=== PATIENT | female | born 1985 | race American Indian/Alaskan Native ===

== ENCOUNTER 2017-10-09 12:09 | Emergency (ER) | payer OTHER ==
[2017-10-09 13:06] VITALS: BP 112/55
[2017-10-09 14:17] LABS: Bilirubin,Urine NEG (Negative); Blood,Urine NEG (Negative); Color,Urine Yellow (Yellow); Mucus,Urine FEW /HPF; Nitrite,Urine NEG (Negative); Protein,Urine <15 mg/dL mg/dL (Negative); RBC,Urine < 1.0 /HPF (0.0-6.0); Urobilinogen,Urine < 2.0 mg/dL (<2.0); WBC,Urine < 1.0 /HPF (0.0-6.0)
[2017-10-09 14:18] LABS: HCG Qualitative,Urine Negative (Negative)
--- NOTE | 2017-10-09 20:30 | Emergency Department Report ---
Minor Respiratory - HPI Chief Complaint: Upper Respiratory Infection Stated Complaint: HEADACHES, EARACHE Time Seen by Provider: 10/09/17 19:50 Pain Location: Ear (left) Severity: mild Minor Respiratory: Yes Rhinorrhea, Yes Able to Tolerate Fluids, Yes Ear Pain ( left), Yes Cough, Yes Shortness of Breath, No Sore Throat, No Sick Contacts, No Hemoptysis, No Chest Pain, No Fever Other History: This is a 32 y.o. female presents with headache, left ear pain with ringing, sinus pressure, runny nose, and vomiting yesterday. 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 Her job sent her home because she couldn't hold her head up from sinus pressure and vomiting. She was coming here last night but just felt terrible. She took robitussin once last night with minimal improvement. She would like to have a refill on albuterol inhaler. She ran out a couple weeks ago but haven't had time to get a new prescription. ED Review of Systems ROS: Stated complaint: HEADACHES, EARACHE Other details as noted in HPI Constitutional: see HPI ENT: ear pain (left with ringing), congestion. denies: throat pain, dental pain , hearing loss, epistaxis Respiratory: cough. denies: orthopnea, shortness of breath, SOB with exertion, SOB at rest, stridor, wheezing Cardiovascular: denies: chest pain, palpitations, dyspnea on exertion, orthopnea , edema, syncope, paroxysmal nocturnal dyspnea Gastrointestinal: nausea (yesterday), vomiting (yesterday). denies: abdominal pain, diarrhea Neurological: headache. denies: weakness, paresthesias ED Past Medical Hx - Past Medical History Hx Hypertension: No Hx Heart Attack/AMI: No Hx Congestive Heart Failure: No Hx Diabetes: Yes (GDM only, on oral meds) Hx Deep Vein Thrombosis: No Hx Liver Disease: No Hx Renal Disease: No Hx Sickle Cell Disease: No Hx Seizures: No Hx Asthma: Yes (used inhaler three days ago) Hx COPD: No Hx HIV: No Additional medical history: uterine fibroids - Surgical History Additional Surgical History: - Social History Smoking Status: Never Smoker Substance Use Type: None - Medications Home Medications: Home Medications Medication Instructions Recorded Confirmed Last Taken Type Lidocain2.5%/Prilocai2.5% [Emla] 5 gm TP ONCE #1 tube 07/14/14 Unknown Rx oxyCODONE /ACETAMINOPHEN [Percocet 1 - 2 tab PO Q4HR PRN #30 tablet 07/14/14 Unknown Rx 5/325 mg] Ibuprofen [Motrin 600 MG tab] 800 mg PO Q8H PRN #30 tablet 09/29/15 Unknown Rx Promethazine [Phenergan TAB] 25 mg PO Q6HR PRN #20 tab 09/29/15 Unknown Rx traMADol [Ultram] 50 mg PO Q6HR PRN #20 tablet 09/29/15 Unknown Rx Albuterol Sulfate [Proair 90 mcg IH Q4-6H PRN 30 Days #1 10/09/17 Unknown Rx Respiclick] aer.pow.ba Fluticasone [Flonase] 1 spray NS QDAY #1 bottle 10/09/17 Unknown Rx Pseudoeph/Dm/Guaifen/Acetamin [Sm 1 each PO Q12H 5 Days #10 capsule 10/09/17 Unknown Rx Cough-Cold M-S Liq Capsule] Minor Respiratory Exam - Exam General: Vital signs noted. No distress. Alert and acting appropriately. HEENT: Yes Moist Mucous Membranes, Yes Rhinorrhea (clear, turbinates swollen and red), No Pharyngeal Erythema, No Pharyngeal Exudates, No Conjuctival Injection, No Frontal Tenderness, No Maxillary Tenderness Ear: Neither TM Bulge, Neither TM Erythema, Neither EAC Pain, Neither EAC Discharge Neck: Yes Supple, No Adenopathy Lungs: Yes Good Air Exchange, Yes Cough, No Wheezes, No Ronchi, No Stridor, No Labored Respirations, No Retractions, No Use of Accessory Muscles, No Other Abnormal Lung Sounds Heart: Yes Regular, No Murmur Abdomen: Yes Normal Bowel Sounds, No Tenderness, No Peritoneal Signs Skin: No Rash, No Edema Neurologic: Alert and oriented, no deficits. Musculoskeletal: Unremarkable. ED Course Vital Signs 10/09/17 13:03 Temperature 98.7 F Pulse Rate 97 H Respiratory 18 Rate Blood Pressure 112/55 O2 Sat by Pulse 97 Oximetry ED Medical Decision Making - Medical Decision Making This is a 32 y.o. Female presents with headache, left ear pain, sinus pressure, congestion, and rhinorrhea x 1 day. 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 Her job sent her home and advised to f/u with doctor. She took robitussin once yesterday. She is out of albuterol inhaler and requesting a refill. Normal UA, Urine HCG negative CC Physical Assessment Susceptible of nasopharyngitis, Supportive care, encouraged to increase fluid intake. Critical care attestation.: If time is entered above; I have spent that time in minutes in the direct care of this critically ill patient, excluding procedure time. ED Disposition Clinical Impression: Nasopharyngitis acute, Viral gastroenteritis Disposition: TO HOME OR SELFCARE Is pt being admited?: No Does the pt Need Aspirin: No Condition: Stable Instructions: Upper Respiratory Infection (ED), Gastroenteritis (ED), Acute Nausea and Vomiting (ED), Cold Symptoms (ED) Additional Instructions: Wash hands frequently. Increase fluid intake and rest. Take medication as prescribed. Follow up with Primary Care Provider if symptoms persist. Prescriptions: Albuterol Sulfate [Proair Respiclick] 90 mcg IH Q4-6H PRN 30 Days #1 aer.pow.ba PRN Reason: Shortness Of Breath Fluticasone [Flonase] 1 spray NS QDAY #1 bottle Pseudoeph/Dm/Guaifen/Acetamin [Sm Cough-Cold M-S Liq Capsule] 1 each PO Q12H 5 Days #10 capsule Referrals: [facility] [Outside] - 3-5 Days [facility] [Outside] - 3-5 Days [facility] [Outside] - 3-5 Days Forms: Work/School Release Form(ED) Time of Disposition: 20:46 Print Language: SWEDISH
== END 2017-10-09 21:25 | disposition home or self-care (01) ==
LOC: ED 12:09
DX: J00 Acute nasopharyngitis [common cold] (principal); A08.4 Viral intestinal infection, unspecified; J45.909 Unspecified asthma, uncomplicated; H92.02 Otalgia, left ear; D25.9 Leiomyoma of uterus, unspecified; Z91.018 Allergy to other foods
CPT/HCPCS: 81001; 81025; 99283

== ENCOUNTER 2017-10-22 00:47 | Emergency (ER) | payer OTHER ==
[2017-10-22] MEDS ORDERED: MOTRIN PO ONE (05:40)
[2017-10-22] MEDS ORDERED: DUONEB *Not for PRN Use IH ONE (05:40)
[2017-10-22] MEDS ORDERED: BSS 1 DROPS, TETRACAINE 0.5% 1 DROPS, FUL-GLO 0.6 MG OD ONE (05:41)
[2017-10-22] MEDS ORDERED: BSS ONE (06:01)
[2017-10-22] MEDS ORDERED: FUL-GLO OP ONE (06:01)
[2017-10-22] MEDS ORDERED: TETRACAINE 0.5% ONE (06:01)
--- NOTE | 2017-10-22 06:37 | Emergency Department Report ---
ED Eye Problem HPI - General Chief complaint: Eye Problems Stated complaint: H/A; EYE IRRITATION Time Seen by Provider: 10/22/17 05:39 Source: patient Mode of arrival: Ambulatory Limitations: No Limitations - History of Present Illness Initial comments: 32-year-old female past medical history obesity, asthma, diabetes, uterine fibroids presents with complaint of 6 days of right eye irritation. Patient denies any direct injury or trauma to eye. Has had watery discharge for several days. States right eye has become red. No nausea or vomiting no fever no chills. Patient does state she has been wheezing slightly at home secondary to her asthma. Denies any productive cough. Patient is awake alert and oriented 3 fully lucid speaking in full sentences. States she has slight foreign body sensation on the right eyelid. MD chief complaint: eye pain Onset/Timin -: days(s) Location: right eye Place: home Eye Symptoms: redness Associated Symptoms: none - Related Data Patient Tetanus UTD: Yes Previous Rx's Medication Instructions Recorded Last Taken Type Lidocain2.5%/Prilocai2.5% [Emla] 5 gm TP ONCE #1 tube 07/14/14 Unknown Rx oxyCODONE /ACETAMINOPHEN [Percocet 1 - 2 tab PO Q4HR PRN #30 tablet 07/14/14 Unknown Rx 5/325 mg] Ibuprofen [Motrin 600 MG tab] 800 mg PO Q8H PRN #30 tablet 09/29/15 Unknown Rx Promethazine [Phenergan TAB] 25 mg PO Q6HR PRN #20 tab 09/29/15 Unknown Rx traMADol [Ultram] 50 mg PO Q6HR PRN #20 tablet 09/29/15 Unknown Rx Albuterol Sulfate [Proair 90 mcg IH Q4-6H PRN 30 Days #1 10/09/17 Unknown Rx Respiclick] aer.pow.ba Fluticasone [Flonase] 1 spray NS QDAY #1 bottle 10/09/17 Unknown Rx Pseudoeph/Dm/Guaifen/Acetamin [Sm 1 each PO Q12H 5 Days #10 capsule 10/09/17 Unknown Rx Cough-Cold M-S Liq Capsule] Albuterol Sulfate [Ventolin Hfa] 1 gm IH Q4H PRN #1 hfa.aer.ad 10/22/17 Unknown Rx Ibuprofen [Motrin] 800 mg PO Q8HR PRN #30 tablet 10/22/17 Unknown Rx Phenylephrine/Dm/Acetaminop/GG 10 ml PO Q6H PRN #1 liquid 10/22/17 Unknown Rx [Mucinex Lkux-Xnu-Yirffxcqjx Lq] Tobramycin 0.3% [Tobrex] 1 drop OD Q6H #1 bottle 10/22/17 Unknown Rx predniSONE [Deltasone] 20 mg PO QDAY #5 tab 10/22/17 Unknown Rx Allergies Allergy/AdvReac Type Severity Reaction Status Date / Time tramadol Allergy Itching Verified 10/22/17 01:12 fat back Allergy Severe Swelling Uncoded 10/23/15 20:56 watermelon Allergy Swelling Uncoded 10/23/15 20:56 ED Review of Systems ROS: Stated complaint: H/A; EYE IRRITATION Other details as noted in HPI Constitutional: denies: chills, fever Eyes: eye pain. denies: eye discharge, vision change ENT: denies: ear pain, throat pain Respiratory: denies: cough, shortness of breath, wheezing Cardiovascular: denies: chest pain, palpitations Endocrine: no symptoms reported Gastrointestinal: denies: abdominal pain, nausea, diarrhea Genitourinary: denies: urgency, dysuria, discharge Musculoskeletal: denies: back pain, joint swelling, arthralgia Skin: denies: rash, lesions Neurological: denies: headache, weakness, paresthesias Psychiatric: denies: anxiety, depression Hematological/Lymphatic: denies: easy bleeding, easy bruising ED Past Medical Hx - Past Medical History Hx Hypertension: No Hx Heart Attack/AMI: No Hx Congestive Heart Failure: No Hx Diabetes: Yes (GDM only, on oral meds) Hx Deep Vein Thrombosis: No Hx Liver Disease: No Hx Renal Disease: No Hx Sickle Cell Disease: No Hx Seizures: No Hx Asthma: Yes (used inhaler three days ago) Hx COPD: No Hx HIV: No Additional medical history: uterine fibroids - Surgical History Additional Surgical History: - Social History Smoking Status: Never Smoker Substance Use Type: None - Medications Home Medications: Home Medications Medication Instructions Recorded Confirmed Last Taken Type Lidocain2.5%/Prilocai2.5% [Emla] 5 gm TP ONCE #1 tube 07/14/14 Unknown Rx oxyCODONE /ACETAMINOPHEN [Percocet 1 - 2 tab PO Q4HR PRN #30 tablet 07/14/14 Unknown Rx 5/325 mg] Ibuprofen [Motrin 600 MG tab] 800 mg PO Q8H PRN #30 tablet 09/29/15 Unknown Rx Promethazine [Phenergan TAB] 25 mg PO Q6HR PRN #20 tab 09/29/15 Unknown Rx traMADol [Ultram] 50 mg PO Q6HR PRN #20 tablet 09/29/15 Unknown Rx Albuterol Sulfate [Proair 90 mcg IH Q4-6H PRN 30 Days #1 10/09/17 Unknown Rx Respiclick] aer.pow.ba Fluticasone [Flonase] 1 spray NS QDAY #1 bottle 10/09/17 Unknown Rx Pseudoeph/Dm/Guaifen/Acetamin [Sm 1 each PO Q12H 5 Days #10 capsule 10/09/17 Unknown Rx Cough-Cold M-S Liq Capsule] Albuterol Sulfate [Ventolin Hfa] 1 gm IH Q4H PRN #1 hfa.aer.ad 10/22/17 Unknown Rx Ibuprofen [Motrin] 800 mg PO Q8HR PRN #30 tablet 10/22/17 Unknown Rx Phenylephrine/Dm/Acetaminop/GG 10 ml PO Q6H PRN #1 liquid 10/22/17 Unknown Rx [Mucinex Fsdn-Ixv-Uorsizxwsn Lq] Tobramycin 0.3% [Tobrex] 1 drop OD Q6H #1 bottle 10/22/17 Unknown Rx predniSONE [Deltasone] 20 mg PO QDAY #5 tab 10/22/17 Unknown Rx ED Physical Exam - General Limitations: No Limitations General appearance: alert, in no apparent distress - Head Head exam: Present: atraumatic, normocephalic - Eye Eye exam: Present: normal appearance, PERRL, EOMI - Expanded Eye Exam Expanded Pupils: Regular, Round: Bilateral, Reactive: Bilateral Sclera/Conjunctival: Injection: Right (right conjunctival injection. Fluorescein uptake on the right eye suggestive of corneal abrasion 6 o'clock position to the limbus.) Anterior chamber: Normal Inspection: Bilateral Visual acuity (R) = 20/: 20 Visual acuity (L) = 20/: 20 IOP (R) in mmH IOP measured with: Tonopen - ENT ENT exam: Present: mucous membranes moist - Neck Neck exam: Present: normal inspection - Respiratory Respiratory exam: Present: normal lung sounds bilaterally. Absent: respiratory distress - Cardiovascular Cardiovascular Exam: Present: regular rate, normal rhythm. Absent: systolic murmur, diastolic murmur, rubs, gallop - GI/Abdominal GI/Abdominal exam: Present: soft, normal bowel sounds - Extremities Exam Extremities exam: Present: normal inspection - Back Exam Back exam: Present: normal inspection - Neurological Exam Neurological exam: Present: alert, oriented X3 - Psychiatric Psychiatric exam: Present: normal affect, normal mood - Skin Skin exam: Present: warm, dry, intact, normal color. Absent: rash ED Course Vital Signs 10/22/17 01:03 Temperature 98.3 F Pulse Rate 92 H Respiratory 20 Rate Blood Pressure 140/80 [Left] ED Medical Decision Making - Medical Decision Making A/P: Right eye corneal abrasion, asthma exacerbation 1-vital signs stable 2-tobramycin drops to right eye, Motrin when necessary. Patient's tetanus vaccine status is up-to-date. 3-follow-up with ophthalmology 4- patient's vision is currently 20/20 bilaterally no foreign body on fluorescein stain Critical care attestation.: If time is entered above; I have spent that time in minutes in the direct care of this critically ill patient, excluding procedure time. ED Disposition Clinical Impression: Corneal abrasion, right Qualifiers: Encounter type: initial encounter Qualified Code(s): S05.01XA - Injury of conjunctiva and corneal abrasion without foreign body, right eye, initial encounter Asthma Qualifiers: Asthma severity: mild Asthma persistence: intermittent Asthma complication type : unspecified Qualified Code(s): J45.20 - Mild intermittent asthma, uncomplicated Disposition: - TO HOME OR SELFCARE Is pt being admited?: No Does the pt Need Aspirin: No Condition: Stable Instructions: Asthma (ED), Corneal Abrasion (ED) Prescriptions: Albuterol Sulfate [Ventolin Hfa] 1 gm IH Q4H PRN #1 hfa.aer.ad PRN Reason: Wheezing Ibuprofen [Motrin] 800 mg PO Q8HR PRN #30 tablet PRN Reason: Pain Phenylephrine/Dm/Acetaminop/GG [Mucinex Hgqs-Wlk-Xksiniyfeu Lq] 10 ml PO Q6H PRN #1 liquid PRN Reason: Cough predniSONE [Deltasone] 20 mg PO QDAY #5 tab Tobramycin 0.3% [Tobrex] 1 drop OD Q6H #1 bottle Referrals: ROBERT LOPEZ MD [Staff Physician] - 3-5 Days HARI ANDERSON MD [Staff Physician] - 3-5 Days Forms: Work/School Release Form(ED) Time of Disposition: 06:41
[2017-10-22 06:56] VITALS: BP 135/76
== END 2017-10-22 07:00 | disposition home or self-care (01) ==
LOC: ED 00:47
DX: S05.01XA Injury of conjunctiva and corneal abrasion without foreign body, right eye, initial encounter (principal); J45.20 Mild intermittent asthma, uncomplicated; E66.9 Obesity, unspecified; E11.9 Type 2 diabetes mellitus without complications; Z88.6 Allergy status to analgesic agent; Z91.018 Allergy to other foods; X58.XXXA Exposure to other specified factors, initial encounter; Y93.89 Activity, other specified; Y92.89 Other specified places as the place of occurrence of the external cause; Y99.8 Other external cause status
CPT/HCPCS: 36415; 84703; 99283

== ENCOUNTER 2019-04-02 04:50 | Emergency (ER) | payer OTHER ==
[2019-04-02] MEDS ORDERED: TYLENOL PO ONE (05:06)
[2019-04-02] MEDS ORDERED: DELTASONE PO ONE (05:06)
[2019-04-02] MEDS ORDERED: BENADRYL PO ONE (05:06)
[2019-04-02] MEDS ORDERED: REGLAN PO ONE (05:06)
--- NOTE | 2019-04-02 05:11 | Emergency Department Report ---
ED Headache HPI - General Chief Complaint: Headache Stated Complaint: NASAL PAIN W/HEADACHE Time Seen by Provider: 04/02/19 05:06 - History of Present Illness Initial Comments: pt is a 34 y/o aaf who present for sinus headache and bilat maxillary sinus pain and pressure x 3 days pt state hx of same for over 10 yrs, there is no sob no dizziness no lightheadedness no n/v no fever or chills, Timing/Duration: 1 week Quality: moderate, sharp Head Injury Location: frontal, parietal Recent Head Trauma: occasional headaches Modifying Factors: improves with: rest. worse with: cold therapy, medication, movement Associated Symptoms: facial pain, nasal congestion, nasal drainage, stiff neck. denies: nausea/vomiting, numbness in legs/feet, seizures, sinus infection Allergies/Adverse Reactions: Allergies tramadol Allergy (Verified 10/22/17 01:12) Itching fat back Allergy (Severe, Uncoded 10/23/15 20:56) Swelling watermelon Allergy (Uncoded 10/23/15 20:56) Swelling Home Medications: Ambulatory Orders oxyCODONE /ACETAMINOPHEN [Percocet 5/325 mg] 1 - 2 tab PO Q4HR PRN #30 tablet 07/14/14 Ibuprofen [Motrin 600 MG tab] 800 mg PO Q8H PRN #30 tablet 09/29/15 Promethazine [Phenergan TAB] 25 mg PO Q6HR PRN #20 tab 09/29/15 traMADol [Ultram] 50 mg PO Q6HR PRN #20 tablet 09/29/15 Albuterol Sulfate [Proair Respiclick] 90 mcg IH Q4-6H PRN 30 Days #1 aer.pow.ba 10/09/17 Fluticasone [Flonase] 1 spray NS QDAY #1 bottle 10/09/17 Pseudoeph/Dm/Guaifen/Acetamin [Sm Cough-Cold M-S Liq Capsule] 1 each PO Q12H 5 Days #10 capsule 10/09/17 Albuterol Sulfate [Ventolin Hfa] 1 gm IH Q4H PRN #1 hfa.aer.ad 10/22/17 Ibuprofen [Motrin] 800 mg PO Q8HR PRN #30 tablet 10/22/17 Phenylephrine/Dm/Acetaminop/GG [Mucinex Ntzv-Vkn-Rgxpwrrweo Lq] 10 ml PO Q6H PRN #1 liquid 10/22/17 Tobramycin 0.3% [Tobrex] 1 drop OD Q6H #1 bottle 10/22/17 predniSONE [Deltasone] 20 mg PO QDAY #5 tab 10/22/17 Acetaminophen/Codeine [Tylenol /Codeine # 3 tab] 1 tab PO Q6H PRN #12 tab 08/19/18 Clindamycin [Clindamycin CAP] 300 mg PO Q8H #21 cap 08/19/18 Naproxen [Naprosyn] 500 mg PO TID #12 tablet 08/19/18 Nystas/Diphen/Xyl Visc/Mylanta [Magic Mouthwash] 15 ml MM Q4H PRN #100 ml 08/19/18 Acetaminophen [Acetaminophen TAB] 1,000 mg PO Q6HR #30 tablet 04/02/19 Acetaminophen [Acetaminophen TAB] 1,000 mg PO Q6HR PRN #30 tablet 04/02/19 Lidocain2.5%/Prilocai2.5% [Emla] 5 gm TP ONCE #1 tube 04/02/19 Metoclopramide [Reglan] 10 mg PO ACHS #6 tablet 04/02/19 diphenhydrAMINE [Benadryl CAP] 25 mg PO Q6HR PRN #30 capsule 04/02/19 predniSONE [Deltasone] 20 mg PO 18 1 Days #10 tablet 04/02/19 ED Review of Systems ROS: Stated complaint: NASAL PAIN W/HEADACHE Other details as noted in HPI Constitutional: denies: chills, fever Eyes: denies: eye pain, eye discharge, vision change ENT: denies: ear pain, throat pain Respiratory: denies: cough, shortness of breath, wheezing Cardiovascular: denies: chest pain, palpitations Endocrine: no symptoms reported Gastrointestinal: denies: abdominal pain, nausea, diarrhea Genitourinary: denies: urgency, dysuria, discharge Musculoskeletal: denies: back pain, joint swelling, arthralgia Skin: denies: rash, lesions Neurological: denies: headache, weakness, paresthesias Psychiatric: denies: anxiety, depression Hematological/Lymphatic: denies: easy bleeding, easy bruising ED Past Medical Hx - Past Medical History Previous Medical History?: Yes Hx Hypertension: No Hx Heart Attack/AMI: No Hx Congestive Heart Failure: No Hx Diabetes: Yes (GDM only, on oral meds) Hx Deep Vein Thrombosis: No Hx Liver Disease: No Hx Renal Disease: No Hx Sickle Cell Disease: No Hx Seizures: No Hx Asthma: Yes (used inhaler three days ago) Hx COPD: No Hx HIV: No Additional medical history: uterine fibroids - Surgical History Past Surgical History?: Yes Additional Surgical History: x 2 - Social History Smoking Status: Current Every Day Smoker Substance Use Type: None - Medications Home Medications: Home Medications Medication Instructions Recorded Confirmed Last Taken Type oxyCODONE /ACETAMINOPHEN [Percocet 1 - 2 tab PO Q4HR PRN #30 tablet 07/14/14 Unknown Rx 5/325 mg] Ibuprofen [Motrin 600 MG tab] 800 mg PO Q8H PRN #30 tablet 09/29/15 Unknown Rx Promethazine [Phenergan TAB] 25 mg PO Q6HR PRN #20 tab 09/29/15 Unknown Rx traMADol [Ultram] 50 mg PO Q6HR PRN #20 tablet 09/29/15 Unknown Rx Albuterol Sulfate [Proair 90 mcg IH Q4-6H PRN 30 Days #1 10/09/17 Unknown Rx Respiclick] aer.pow.ba Fluticasone [Flonase] 1 spray NS QDAY #1 bottle 10/09/17 Unknown Rx Pseudoeph/Dm/Guaifen/Acetamin [Sm 1 each PO Q12H 5 Days #10 capsule 10/09/17 Unknown Rx Cough-Cold M-S Liq Capsule] Albuterol Sulfate [Ventolin Hfa] 1 gm IH Q4H PRN #1 hfa.aer.ad 10/22/17 Unknown Rx Ibuprofen [Motrin] 800 mg PO Q8HR PRN #30 tablet 10/22/17 Unknown Rx Phenylephrine/Dm/Acetaminop/GG 10 ml PO Q6H PRN #1 liquid 10/22/17 Unknown Rx [Mucinex Aqxc-Rsb-Ccflvxojyn Lq] Tobramycin 0.3% [Tobrex] 1 drop OD Q6H #1 bottle 10/22/17 Unknown Rx predniSONE [Deltasone] 20 mg PO QDAY #5 tab 10/22/17 Unknown Rx Acetaminophen/Codeine [Tylenol 1 tab PO Q6H PRN #12 tab 08/19/18 Unknown Rx /Codeine # 3 tab] Clindamycin [Clindamycin CAP] 300 mg PO Q8H #21 cap 08/19/18 Unknown Rx Naproxen [Naprosyn] 500 mg PO TID #12 tablet 08/19/18 Unknown Rx Nystas/Diphen/Xyl Visc/Mylanta 15 ml MM Q4H PRN #100 ml 08/19/18 Unknown Rx [Magic Mouthwash] Acetaminophen [Acetaminophen TAB] 1,000 mg PO Q6HR #30 tablet 04/02/19 Unknown Rx Acetaminophen [Acetaminophen TAB] 1,000 mg PO Q6HR PRN #30 tablet 04/02/19 Unknown Rx Lidocain2.5%/Prilocai2.5% [Emla] 5 gm TP ONCE #1 tube 04/02/19 Unknown Rx Metoclopramide [Reglan] 10 mg PO ACHS #6 tablet 04/02/19 Unknown Rx diphenhydrAMINE [Benadryl CAP] 25 mg PO Q6HR PRN #30 capsule 04/02/19 Unknown Rx predniSONE [Deltasone] 20 mg PO 18 1 Days #10 tablet 04/02/19 Unknown Rx ED Physical Exam - General Limitations: No Limitations General appearance: alert, in no apparent distress - Head Head exam: Present: atraumatic, normocephalic - Eye Eye exam: Present: normal appearance, PERRL, EOMI, scleral icterus Pupils: Present: normal accommodation - ENT ENT exam: Present: normal exam, normal orophraynx, mucous membranes dry, TM's normal bilaterally, normal external ear exam - Neck Neck exam: Present: normal inspection, full ROM, lymphadenopathy. Absent: tenderness, meningismus, thyromegaly - Respiratory Respiratory exam: Present: wheezes, decreased breath sounds. Absent: respiratory distress, rales, stridor - Cardiovascular Cardiovascular Exam: Present: regular rate, normal rhythm, normal heart sounds. Absent: systolic murmur, diastolic murmur, rubs, gallop - GI/Abdominal GI/Abdominal exam: Present: soft, normal bowel sounds. Absent: distended, tenderness, mass, bruit, hernia - Rectal Rectal exam: Present: deferred - Extremities Exam Extremities exam: Present: normal inspection - Back Exam Back exam: Present: normal inspection, full ROM. Absent: tenderness, CVA tenderness (R), CVA tenderness (L), muscle spasm, paraspinal tenderness, rash noted - Neurological Exam Neurological exam: Present: alert, oriented X3, CN II-XII intact, normal gait, reflexes normal, other - Psychiatric Psychiatric exam: Present: normal affect, normal mood - Skin Skin exam: Present: warm, dry, intact, normal color. Absent: rash ED Medical Decision Making - EKG Data EKG shows normal: sinus rhythm, axis, intervals, QRS complexes, ST-T waves Rate: normal - Radiology Data Radiology results: report reviewed CT Abd and Pelvis. pt avaliable did a he has to go to unit., Dustin machado , - Medical Decision Making This is a Sinus Headache, plan, tylenol, pt aststes pain is improved plan: dc to home an dstart a nother pt denies cp or sob no dizziness no light headed ness, plan dc to home in stable condition at this time. vital signs: bp: 136/74, Hr: 74, resp: 16, temp: 98.6, pt will follow up with pcp in 2-3 days return to ed if symptoms worsent, p Critical care attestation.: If time is entered above; I have spent that time in minutes in the direct care of this critically ill patient, excluding procedure time. ED Disposition Clinical Impression: Sinus headache Headache Qualifiers: Headache type: unspecified Headache chronicity pattern: chronic headache Intractability: not intractable Qualified Code(s): R51 - Headache Disposition: DC-01 TO HOME OR SELFCARE Is pt being admited?: No Does the pt Need Aspirin: No Condition: Good Instructions: Acute Headache (ED), Sinusitis (ED) Prescriptions: Acetaminophen [Acetaminophen TAB] 1,000 mg PO Q6HR PRN #30 tablet PRN Reason: Pain , Severe (7-10) Acetaminophen [Acetaminophen TAB] 1,000 mg PO Q6HR #30 tablet diphenhydrAMINE [Benadryl CAP] 25 mg PO Q6HR PRN #30 capsule PRN Reason: Headache predniSONE [Deltasone] 20 mg PO 18 1 Days #10 tablet Lidocain2.5%/Prilocai2.5% [Emla] 5 gm TP ONCE #1 tube Metoclopramide [Reglan] 10 mg PO ACHS #6 tablet Referrals: SIMON GONZALES MD [Staff Physician] - 3-5 Days Forms: Work/School Release Form(ED) Time of Disposition: 05:42
== END 2019-04-02 06:58 | disposition home or self-care (01) ==
LOC: ED 04:50
DX: R51 Headache (principal); E11.9 Type 2 diabetes mellitus without complications; J45.909 Unspecified asthma, uncomplicated; D25.9 Leiomyoma of uterus, unspecified; F17.200 Nicotine dependence, unspecified, uncomplicated; Z79.1 Long term (current) use of non-steroidal anti-inflammatories (NSAID); Z79.899 Other long term (current) drug therapy; Z88.6 Allergy status to analgesic agent; Z91.018 Allergy to other foods
CPT/HCPCS: 99282; J7512

== ENCOUNTER 2019-07-14 00:20 | Emergency (ER) | payer OTHER ==
[2019-07-14 01:04] LABS: Bilirubin,Urine NEG (Negative); Blood,Urine NEG (Negative); Color,Urine Yellow (Yellow); Mucus,Urine FEW /HPF; Protein,Urine <15 mg/dL mg/dL (Negative); WBC,Urine < 1.0 /HPF (0.0-6.0)
[2019-07-14 01:09] LABS: Basophils # (Auto) 0.1 K/mm3 (0.0-0.1); Basophils % (Auto) 0.6 % (0.0-1.8); Eosinophils # (Auto) 0.2 K/mm3 (0.0-0.4); Eosinophils % (Auto) 2.7 % (0.0-4.3); Hematocrit 38.8 % (30.3-42.9); Hemoglobin 12.9 gm/dl (10.1-14.3); Lymphocytes # (Auto) 3.2 K/mm3 (1.2-5.4); Lymphocytes % (Auto) 34.2 % (13.4-35.0); Mean Corpuscular HGB Conc 33 % (30-34); Mean Corpuscular Volume 90 fl (79-97); Monocytes # (Auto) 0.5 K/mm3 (0.0-0.8); Monocytes % (Auto) 5.2 % (0.0-7.3); Platelet Count 246 K/mm3 (140-440); Red Blood Count 4.32 M/mm3 (3.65-5.03)
[2019-07-14 01:32] LABS: Alanine Aminotransferase 29 units/L (7-56); Albumin 4.2 g/dL (3.9-5); BUN/Creatinine Ratio 20; Blood Urea Nitrogen 14 mg/dL (7-17); Calcium 8.8 mg/dL (8.4-10.2); Hemolysis Index 16
--- NOTE | 2019-07-14 01:42 | Emergency Department Report ---
ED Abdominal Pain HPI - General Chief Complaint: Abdominal Pain Stated Complaint: ABD PAIN LT SIDE Time Seen by Provider: 07/14/19 01:17 Source: patient Mode of arrival: Ambulatory Limitations: No Limitations - History of Present Illness Initial Comments: This is a 34-year-old -[place] female who presents to the emergency room with left-sided abdominal pain for 2-3 days. Past medical history of type 2 diabetes and asthma. Patient reports pain is worse after eating. She also reports urinary frequency. She denies nausea, vomiting, diarrhea, vaginal discharge, dysuria, hematuria, and chest pain. MD Complaint: abdominal pain Onset/Timin -: days(s) Location: LUQ, LLQ Radiation: none Migration to: no migration Severity scale (0 -10): 8 Quality: cramping Consistency: intermittent Improves With: nothing Worsens With: eating Associated Symptoms: denies other symptoms Treatments Prior to Arrival: NSAIDs - Related Data Previous Rx's Medication Instructions Recorded Last Taken Type oxyCODONE /ACETAMINOPHEN [Percocet 1 - 2 tab PO Q4HR PRN #30 tablet 07/14/14 Un known Rx 5/325 mg] Ibuprofen [Motrin 600 MG tab] 800 mg PO Q8H PRN #30 tablet 09/29/15 Unknown Rx Promethazine [Phenergan TAB] 25 mg PO Q6HR PRN #20 tab 09/29/15 Unknown Rx traMADol [Ultram] 50 mg PO Q6HR PRN #20 tablet 09/29/15 Unknown Rx Albuterol Sulfate [Proair 90 mcg IH Q4-6H PRN 30 Days #1 10/09/17 Unknown Rx Respiclick] aer.pow.ba Fluticasone [Flonase] 1 spray NS QDAY #1 bottle 10/09/17 Unknown Rx Pseudoeph/Dm/Guaifen/Acetamin [Sm 1 each PO Q12H 5 Days #10 capsule 10/09/17 Unknown Rx Cough-Cold M-S Liq Capsule] Albuterol Sulfate [Ventolin Hfa] 1 gm IH Q4H PRN #1 hfa.aer.ad 10/22/17 Unknown Rx Ibuprofen [Motrin] 800 mg PO Q8HR PRN #30 tablet 10/22/17 Unknown Rx Phenylephrine/Dm/Acetaminop/GG 10 ml PO Q6H PRN #1 liquid 10/22/17 Unknown Rx [Mucinex Adhx-Gjv-Bssbcgcvgs Lq] Tobramycin 0.3% [Tobrex] 1 drop OD Q6H #1 bottle 10/22/17 Unknown Rx predniSONE [Deltasone] 20 mg PO QDAY #5 tab 10/22/17 Unknown Rx Acetaminophen/Codeine [Tylenol 1 tab PO Q6H PRN #12 tab 08/19/18 Unknown Rx /Codeine # 3 tab] Clindamycin [Clindamycin CAP] 300 mg PO Q8H #21 cap 08/19/18 Unknown Rx Naproxen [Naprosyn] 500 mg PO TID #12 tablet 08/19/18 Unknown Rx Nystas/Diphen/Xyl Visc/Mylanta 15 ml MM Q4H PRN #100 ml 08/19/18 Unknown Rx [Magic Mouthwash] Acetaminophen [Acetaminophen TAB] 1,000 mg PO Q6HR #30 tablet 04/02/19 Unknown Rx Acetaminophen [Acetaminophen TAB] 1,000 mg PO Q6HR PRN #30 tablet 04/02/19 Unknown Rx Lidocain2.5%/Prilocai2.5% [Emla] 5 gm TP ONCE #1 tube 04/02/19 Unknown Rx Metoclopramide [Reglan] 10 mg PO ACHS #6 tablet 04/02/19 Unknown Rx diphenhydrAMINE [Benadryl CAP] 25 mg PO Q6HR PRN #30 capsule 04/02/19 Unknown Rx predniSONE [Deltasone] 20 mg PO 18 1 Days #10 tablet 04/02/19 Unknown Rx Famotidine [Pepcid] 40 mg PO QHS #30 tablet 07/14/19 Unknown Rx Allergies Allergy/AdvReac Type Severity Reaction Status Date / Time tramadol Allergy Itching Verified 10/22/17 01:12 fat back Allergy Severe Swelling Uncoded 10/23/15 20:56 watermelon Allergy Swelling Uncoded 10/23/15 20:56 ED Review of Systems ROS: Stated complaint: ABD PAIN LT SIDE Other details as noted in HPI Constitutional: denies: chills, fever Respiratory: denies: cough, shortness of breath, wheezing Cardiovascular: denies: chest pain, palpitations Gastrointestinal: abdominal pain (left sided). denies: nausea, diarrhea Genitourinary: frequency. denies: urgency, dysuria, discharge Musculoskeletal: denies: back pain, joint swelling, arthralgia Skin: denies: rash, lesions Neurological: denies: headache, weakness, paresthesias Psychiatric: denies: anxiety, depression ED Past Medical Hx - Past Medical History Previous Medical History?: Yes Hx Hypertension: No Hx Heart Attack/AMI: No Hx Congestive Heart Failure: No Hx Diabetes: Yes (GDM only, on oral meds) Hx Deep Vein Thrombosis: No Hx Liver Disease: No Hx Renal Disease: No Hx Sickle Cell Disease: No Hx Seizures: No Hx Asthma: Yes (used inhaler three days ago) Hx COPD: No Hx HIV: No Additional medical history: uterine fibroids - Surgical History Past Surgical History?: Yes Additional Surgical History: x 2 - Social History Smoking Status: Current Every Day Smoker Substance Use Type: None - Medications Home Medications: Home Medications Medication Instructions Recorded Confirmed Last Taken Type oxyCODONE /ACETAMINOPHEN [Percocet 1 - 2 tab PO Q4HR PRN #30 tablet 07/14/14 Unknown Rx 5/325 mg] Ibuprofen [Motrin 600 MG tab] 800 mg PO Q8H PRN #30 tablet 09/29/15 Unknown Rx Promethazine [Phenergan TAB] 25 mg PO Q6HR PRN #20 tab 09/29/15 Unknown Rx traMADol [Ultram] 50 mg PO Q6HR PRN #20 tablet 09/29/15 Unknown Rx Albuterol Sulfate [Proair 90 mcg IH Q4-6H PRN 30 Days #1 10/09/17 Unknown Rx Respiclick] aer.pow.ba Fluticasone [Flonase] 1 spray NS QDAY #1 bottle 10/09/17 Unknown Rx Pseudoeph/Dm/Guaifen/Acetamin [Sm 1 each PO Q12H 5 Days #10 capsule 10/09/17 Unknown Rx Cough-Cold M-S Liq Capsule] Albuterol Sulfate [Ventolin Hfa] 1 gm IH Q4H PRN #1 hfa.aer.ad 10/22/17 Unknown Rx Ibuprofen [Motrin] 800 mg PO Q8HR PRN #30 tablet 10/22/17 Unknown Rx Phenylephrine/Dm/Acetaminop/GG 10 ml PO Q6H PRN #1 liquid 10/22/17 Unknown Rx [Mucinex Hydk-Zaz-Ecwsrvkrju Lq] Tobramycin 0.3% [Tobrex] 1 drop OD Q6H #1 bottle 10/22/17 Unknown Rx predniSONE [Deltasone] 20 mg PO QDAY #5 tab 10/22/17 Unknown Rx Acetaminophen/Codeine [Tylenol 1 tab PO Q6H PRN #12 tab 08/19/18 Unknown Rx /Codeine # 3 tab] Clindamycin [Clindamycin CAP] 300 mg PO Q8H #21 cap 08/19/18 Unknown Rx Naproxen [Naprosyn] 500 mg PO TID #12 tablet 08/19/18 Unknown Rx Nystas/Diphen/Xyl Visc/Mylanta 15 ml MM Q4H PRN #100 ml 08/19/18 Unknown Rx [Magic Mouthwash] Acetaminophen [Acetaminophen TAB] 1,000 mg PO Q6HR #30 tablet 04/02/19 Unknown Rx Acetaminophen [Acetaminophen TAB] 1,000 mg PO Q6HR PRN #30 tablet 04/02/19 Unknown Rx Lidocain2.5%/Prilocai2.5% [Emla] 5 gm TP ONCE #1 tube 04/02/19 Unknown Rx Metoclopramide [Reglan] 10 mg PO ACHS #6 tablet 04/02/19 Unknown Rx diphenhydrAMINE [Benadryl CAP] 25 mg PO Q6HR PRN #30 capsule 04/02/19 Unknown Rx predniSONE [Deltasone] 20 mg PO 18 1 Days #10 tablet 04/02/19 Unknown Rx Famotidine [Pepcid] 40 mg PO QHS #30 tablet 07/14/19 Unknown Rx ED Physical Exam - General Limitations: No Limitations General appearance: alert, in no apparent distress, obese (morbidly) - Respiratory Respiratory exam: Present: normal lung sounds bilaterally. Absent: respiratory distress - Cardiovascular Cardiovascular Exam: Present: regular rate, normal rhythm. Absent: systolic murmur, diastolic murmur, rubs, gallop - GI/Abdominal GI/Abdominal exam: Present: soft, tenderness (left upper quadrant), normal bowel sounds. Absent: distended, guarding, rebound, rigid, organomegaly, mass, pulsatile mass - Back Exam Back exam: Absent: CVA tenderness (R), CVA tenderness (L), rash noted - Neurological Exam Neurological exam: Present: alert, oriented X3, normal gait - Psychiatric Psychiatric exam: Present: normal affect, normal mood - Skin Skin exam: Present: warm, dry, intact, normal color. Absent: rash ED Course Vital Signs 07/14/19 00:24 Temperature 98.4 F Pulse Rate 80 Respiratory 18 Rate Blood Pressure 147/40 O2 Sat by Pulse 99 Oximetry ED Medical Decision Making - Lab Data Result diagrams: 07/14/19 00:53 07/14/19 00:53 Lab Results 07/14/19 07/14/19 07/14/19 Range/Units 00:53 00:53 00:53 WBC 9.3 (4.5-11.0) K/mm3 RBC 4.32 (3.65-5.03) M/mm3 Hgb 12.9 (10.1-14.3) gm/dl Hct 38.8 (30.3-42.9) % MCV 90 (79-97) fl MCH 30 (28-32) pg MCHC 33 (30-34) % RDW 14.0 (13.2-15.2) % Plt Count 246 (140-440) K/mm3 Lymph % (Auto) 34.2 (13.4-35.0) % Kaufman % (Auto) 5.2 (0.0-7.3) % Eos % (Auto) 2.7 (0.0-4.3) % Baso % (Auto) 0.6 (0.0-1.8) % Lymph # 3.2 (1.2-5.4) K/mm3 Kaufman # 0.5 (0.0-0.8) K/mm3 Eos # 0.2 (0.0-0.4) K/mm3 Baso # 0.1 (0.0-0.1) K/mm3 Seg Neutrophils % 57.3 (40.0-70.0) % Seg Neutrophils # 5.3 (1.8-7.7) K/mm3 Sodium 141 (137-145) mmol/L Potassium 3.8 (3.6-5.0) mmol/L Chloride 103.4 (98-107) mmol/L Carbon Dioxide 26 (22-30) mmol/L Anion Gap 15 mmol/L BUN 14 (7-17) mg/dL Creatinine 0.7 (0.7-1.2) mg/dL Estimated GFR > 60 ml/min BUN/Creatinine Ratio 20 % Glucose 107 H (65-100) mg/dL Calcium 8.8 (8.4-10.2) mg/dL Total Bilirubin 0.20 (0.1-1.2) mg/dL AST 26 (5-40) units/L ALT 29 (7-56) units/L Alkaline Phosphatase 108 (35-129) units/L Total Protein 7.6 (6.3-8.2) g/dL Albumin 4.2 (3.9-5) g/dL Albumin/Globulin Ratio 1.2 % HCG, Qual Negative (Negative) Urine Color (Yellow) Urine Turbidity (Clear) Urine pH (5.0-7.0) Ur Specific Natalia (1.003-1.030) Urine Protein (Negative) mg/dL Urine Glucose (UA) (Negative) mg/dL Urine Ketones (Negative) mg/dL Urine Blood (Negative) Urine Nitrite (Negative) Urine Bilirubin (Negative) Urine Urobilinogen (<2.0) mg/dL Ur Leukocyte Esterase (Negative) Urine WBC (Auto) (0.0-6.0) /HPF Urine RBC (Auto) (0.0-6.0) /HPF U Epithel Cells (Auto) (0-13.0) /HPF Urine Mucus /HPF 07/14/19 Range/Units Unknown WBC (4.5-11.0) K/mm3 RBC (3.65-5.03) M/mm3 Hgb (10.1-14.3) gm/dl Hct (30.3-42.9) % MCV (79-97) fl MCH (28-32) pg MCHC (30-34) % RDW (13.2-15.2) % Plt Count (140-440) K/mm3 Lymph % (Auto) (13.4-35.0) % Kaufman % (Auto) (0.0-7.3) % Eos % (Auto) (0.0-4.3) % Baso % (Auto) (0.0-1.8) % Lymph # (1.2-5.4) K/mm3 Kaufman # (0.0-0.8) K/mm3 Eos # (0.0-0.4) K/mm3 Baso # (0.0-0.1) K/mm3 Seg Neutrophils % (40.0-70.0) % Seg Neutrophils # (1.8-7.7) K/mm3 Sodium (137-145) mmol/L Potassium (3.6-5.0) mmol/L Chloride (98-107) mmol/L Carbon Dioxide (22-30) mmol/L Anion Gap mmol/L BUN (7-17) mg/dL Creatinine (0.7-1.2) mg/dL Estimated GFR ml/min BUN/Creatinine Ratio % Glucose (65-100) mg/dL Calcium (8.4-10.2) mg/dL Total Bilirubin (0.1-1.2) mg/dL AST (5-40) units/L ALT (7-56) units/L Alkaline Phosphatase (35-129) units/L Total Protein (6.3-8.2) g/dL Albumin (3.9-5) g/dL Albumin/Globulin Ratio % HCG, Qual (Negative) Urine Color Yellow (Yellow) Urine Turbidity Clear (Clear) Urine pH 7.0 (5.0-7.0) Ur Specific Natalia 1.019 (1.003-1.030) Urine Protein <15 mg/dl (Negative) mg/dL Urine Glucose (UA) Neg (Negative) mg/dL Urine Ketones Neg (Negative) mg/dL Urine Blood Neg (Negative) Urine Nitrite Neg (Negative) Urine Bilirubin Neg (Negative) Urine Urobilinogen 2.0 (<2.0) mg/dL Ur Leukocyte Esterase Neg (Negative) Urine WBC (Auto) < 1.0 (0.0-6.0) /HPF Urine RBC (Auto) 2.0 (0.0-6.0) /HPF U Epithel Cells (Auto) 2.0 (0-13.0) /HPF Urine Mucus Few /HPF - Radiology Data Radiology results: report reviewed CT ABDOMEN AND PELVIS WITH CONTRAST INDICATION / CLINICAL INFORMATION: left sided abdominal pain. TECHNIQUE: Axial CT images were obtained through the abdomen and pelvis after 100 mL Omnipaque [address] scans at this location are performed using CT dose reduction for ALARA by means of automated exposure control. COMPARISON: None available. FINDINGS: LOWER CHEST: No significant abnormality. LIVER: Hepatic steatosis. GALLBLADDER: No significant abnormality. BILE DUCTS: No significant abnormality. PANCREAS: No significant abnormality. SPLEEN: No significant abnormality. ADRENALS: No significant abnormality. RIGHT KIDNEY and URETER: No significant abnormality. LEFT KIDNEY and URETER: No significant abnormality. STOMACH and SMALL BOWEL: No significant abnormality. COLON: No significant abnormality. APPENDIX: No significant abnormality. PERITONEUM: No free fluid. No free air. No fluid collection. LYMPH NODES: No significant adenopathy. AORTA and ARTERIES: No significant abnormality. IVC and VEINS: No significant abnormality. URINARY BLADDER: No significant abnormality. REPRODUCTIVE ORGANS: Uterus is enlarged and mildly nodular likely representing fibroids. There is a nabothian cyst in the cervix. ADDITIONAL FINDINGS: None. SKELETAL SYSTEM: No significant abnormality. IMPRESSION: 1. No inflammatory process or bowel obstruction. 2. Hepatic steatosis. - Medical Decision Making Patient was examined by me. Patient is nontoxic appearing and stable. Past medical history of asthma and type 2 diabetes. Vitals are stable. Labs and CT of abdomen and pelvis was obtained. All labs are unremarkable. CT findings of no inflammatory process or bowel obstruction. Hepatic steatosis. Patient denies nausea, vomiting, fever, chills, or urinary changes. Given pepcid while in the ER. Pain is worse after eating. Referral to Gastroenterology for upper GI studies to r/o peptic ulcer disease. Patient informed of results. Start pepcid for trial. Follow up with PCP or return to the ER with worsening symptoms. Patient discharged home in stable condition. - Differential Diagnosis pancreatitis, peptic ulcer, hepatic abscess Critical care attestation.: If time is entered above; I have spent that time in minutes in the direct care of this critically ill patient, excluding procedure time. ED Disposition Clinical Impression: Left sided abdominal pain, Hepatic steatosis Disposition: TO HOME OR SELFCARE Is pt being admited?: No Condition: Stable Instructions: Abdominal Pain (ED) Additional Instructions: Follow-up with a research psychologist for possible upper GI studies. Follow-up with primary care doctor or return to the emergency room with worsening symptoms. Prescriptions: Famotidine [Pepcid] 40 mg PO QHS #30 tablet Referrals: [facility] [Provider Group] - 3-5 Days [facility] [Provider Group] - 3-5 Days SERGIO WHITAKER MD [Staff Physician] - 3-5 Days Forms: Work/School Release Form(ED) Time of Disposition: 03:35
--- NOTE | 2019-07-14 03:21 | Cat Scan Report ---
CT ABDOMEN AND PELVIS WITH CONTRAST INDICATION / CLINICAL INFORMATION: left sided abdominal pain. TECHNIQUE: Axial CT images were obtained through the abdomen and pelvis after 100 mL Omnipaque [address] scans at this location are performed using CT dose reduction for ALARA by means of automated exposure control. COMPARISON: None available. FINDINGS: LOWER CHEST: No significant abnormality. LIVER: Hepatic steatosis. GALLBLADDER: No significant abnormality. BILE DUCTS: No significant abnormality. PANCREAS: No significant abnormality. SPLEEN: No significant abnormality. ADRENALS: No significant abnormality. RIGHT KIDNEY and URETER: No significant abnormality. LEFT KIDNEY and URETER: No significant abnormality. STOMACH and SMALL BOWEL: No significant abnormality. COLON: No significant abnormality. APPENDIX: No significant abnormality. PERITONEUM: No free fluid. No free air. No fluid collection. LYMPH NODES: No significant adenopathy. AORTA and ARTERIES: No significant abnormality. IVC and VEINS: No significant abnormality. URINARY BLADDER: No significant abnormality. REPRODUCTIVE ORGANS: Uterus is enlarged and mildly nodular likely representing fibroids. There is a n abothian cyst in the cervix. ADDITIONAL FINDINGS: None. SKELETAL SYSTEM: No significant abnormality. IMPRESSION: 1. No inflammatory process or bowel obstruction. 2. Hepatic steatosis. Signer Name: Mariluz Maher MD Signed: 07/14/2019 3:17 AM Workstation Name: [email or web address]
[2019-07-14] MEDS ORDERED: FAMOTIDINE 20 MG TAB PO ONE (03:30)
[2019-07-14 04:02] VITALS: BP 120/78
== END 2019-07-14 04:01 | disposition home or self-care (01) ==
LOC: ED 00:20
DX: K76.0 Fatty (change of) liver, not elsewhere classified (principal); E11.9 Type 2 diabetes mellitus without complications; J45.909 Unspecified asthma, uncomplicated; F17.200 Nicotine dependence, unspecified, uncomplicated; Z88.8 Allergy status to other drugs, medicaments and biological substances; Z91.018 Allergy to other foods; Z79.899 Other long term (current) drug therapy; Z98.890 Other specified postprocedural states
CPT/HCPCS: 36415; 74177; 80053; 81001; 84703; 85025; 99284; Q9967

== ENCOUNTER 2019-08-24 04:21 | Emergency (ER) | payer OTHER ==
[2019-08-24 04:31] VITALS: BP 129/60
--- NOTE | 2019-08-24 08:53 | Emergency Department Report ---
ED General Adult HPI - General Chief complaint: Eye Problems Stated complaint: LEFT EYE PAIN Time Seen by Provider: 08/24/19 08:43 Source: patient Mode of arrival: Ambulatory Limitations: No Limitations - History of Present Illness Initial comments: 34 year old female complains of irritation pain left hand discomfort. She denies arm body. She has had ray of symptoms including runny nose cough and some sore throat. Her symptoms began this a.m. She does have a history of diabetes. She reports no acute change in vision. -: Gradual, hour(s) Location: left (I) Quality: burning Consistency: constant Improves with: none Worsens with: none Associated Symptoms: denies other symptoms, cough - Related Data Previous Rx's Medication Instructions Recorded Last Taken Type oxyCODONE /ACETAMINOPHEN [Percocet 1 - 2 tab PO Q4HR PRN #30 tablet 07/14/14 Unknown Rx 5/325 mg] Ibuprofen [Motrin 600 MG tab] 800 mg PO Q8H PRN #30 tablet 09/29/15 Unknown Rx Promethazine [Phenergan TAB] 25 mg PO Q6HR PRN #20 tab 09/29/15 Unknown Rx traMADoL [Ultram] 50 mg PO Q6HR PRN #20 tablet 09/29/15 Unknown Rx Albuterol Sulfate [Proair 90 mcg IH Q4-6H PRN 30 Days #1 10/09/17 Unknown Rx Respiclick] aer.pow.ba Fluticasone [Flonase] 1 spray NS QDAY #1 bottle 10/09/17 Unknown Rx Pseudoeph/Dm/Guaifen/Acetamin [Sm 1 each PO Q12H 5 Days #10 capsule 10/09/17 Unknown Rx Cough-Cold M-S Liq Capsule] Albuterol Sulfate [Ventolin Hfa] 1 gm IH Q4H PRN #1 hfa.aer.ad 10/22/17 Unknown Rx Ibuprofen [Motrin] 800 mg PO Q8HR PRN #30 tablet 10/22/17 Unknown Rx Phenylephrine/Dm/Acetaminop/GG 10 ml PO Q6H PRN #1 liquid 10/22/17 Unknown Rx [Mucinex Uqms-Xpy-Qbrkqtkkcn Lq] Tobramycin 0.3% [Tobrex] 1 drop OD Q6H #1 bottle 10/22/17 Unknown Rx predniSONE [Deltasone] 20 mg PO QDAY #5 tab 10/22/17 Unknown Rx Acetaminophen/Codeine [Tylenol 1 tab PO Q6H PRN #12 tab 08/19/18 Unknown Rx /Codeine # 3 tab] Clindamycin [Clindamycin CAP] 300 mg PO Q8H #21 cap 08/19/18 Unknown Rx Naproxen [Naprosyn] 500 mg PO TID #12 tablet 08/19/18 Unknown Rx Nystas/Diphen/Xyl Visc/Mylanta 15 ml MM Q4H PRN #100 ml 08/19/18 Unknown Rx [Magic Mouthwash] Acetaminophen [Acetaminophen TAB] 1,000 mg PO Q6HR #30 tablet 04/02/19 Unknown Rx Acetaminophen [Acetaminophen TAB] 1,000 mg PO Q6HR PRN #30 tablet 04/02/19 Unknown Rx Lidocain2.5%/Prilocai2.5% [Emla] 5 gm TP ONCE #1 tube 04/02/19 Unknown Rx Metoclopramide [Reglan] 10 mg PO ACHS #6 tablet 04/02/19 Unknown Rx diphenhydrAMINE [Benadryl CAP] 25 mg PO Q6HR PRN #30 capsule 04/02/19 Unknown Rx predniSONE [Deltasone] 20 mg PO 18 1 Days #10 tablet 04/02/19 Unknown Rx Famotidine [Pepcid] 40 mg PO QHS #30 tablet 07/14/19 Unknown Rx HYDROcodone/APAP 5-325 [Berry 1 each PO Q4HR PRN #7 tablet 08/24/19 Unknown Rx 5/325] Sulfacetamide Sodium 5 ml OP TID #1 drops 08/24/19 Unknown Rx [Sulfacetamide Sodium 10%] Allergies Allergy/AdvReac Type Severity Reaction Status Date / Time tramadol Allergy Itching Verified 10/22/17 01:12 fat back Allergy Severe Swelling Uncoded 10/23/15 20:56 watermelon Allergy Swelling Uncoded 10/23/15 20:56 ED Review of Systems ROS: Stated complaint: LEFT EYE PAIN Other details as noted in HPI Constitutional: denies: chills, fever Eyes: eye pain, other (eye redness). denies: eye discharge, vision change ENT: throat pain. denies: ear pain Respiratory: cough. denies: shortness of breath, wheezing Cardiovascular: denies: chest pain, palpitations Endocrine: no symptoms reported Gastrointestinal: denies: abdominal pain, nausea, diarrhea Genitourinary: denies: urgency, dysuria, discharge Musculoskeletal: denies: back pain, joint swelling, arthralgia Skin: denies: rash, lesions Neurological: denies: headache, weakness, paresthesias Psychiatric: denies: anxiety, depression Hematological/Lymphatic: denies: easy bleeding, easy bruising ED Past Medical Hx - Past Medical History Previous Medical History?: Yes Hx Hypertension: No Hx Heart Attack/AMI: No Hx Congestive Heart Failure: No Hx Diabetes: Yes (GDM only, on oral meds) Hx Deep Vein Thrombosis: No Hx Liver Disease: No Hx Renal Disease: No Hx Sickle Cell Disease: No Hx Seizures: No Hx Asthma: Yes (used inhaler three days ago) Hx COPD: No Hx HIV: No Additional medical history: uterine fibroids - Surgical History Past Surgical History?: Yes Additional Surgical History: x 2 - Social History Smoking Status: Former Smoker Substance Use Type: None - Medications Home Medications: Home Medications Medication Instructions Recorded Confirmed Last Taken Type oxyCODONE /ACETAMINOPHEN [Percocet 1 - 2 tab PO Q4HR PRN #30 tablet 07/14/14 Unknown Rx 5/325 mg] Ibuprofen [Motrin 600 MG tab] 800 mg PO Q8H PRN #30 tablet 09/29/15 Unknown Rx Promethazine [Phenergan TAB] 25 mg PO Q6HR PRN #20 tab 09/29/15 Unknown Rx traMADoL [Ultram] 50 mg PO Q6HR PRN #20 tablet 09/29/15 Unknown Rx Albuterol Sulfate [Proair 90 mcg IH Q4-6H PRN 30 Days #1 10/09/17 Unknown Rx Respiclick] aer.pow.ba Fluticasone [Flonase] 1 spray NS QDAY #1 bottle 10/09/17 Unknown Rx Pseudoeph/Dm/Guaifen/Acetamin [Sm 1 each PO Q12H 5 Days #10 capsule 10/09/17 Unknown Rx Cough-Cold M-S Liq Capsule] Albuterol Sulfate [Ventolin Hfa] 1 gm IH Q4H PRN #1 hfa.aer.ad 10/22/17 Unknown Rx Ibuprofen [Motrin] 800 mg PO Q8HR PRN #30 tablet 10/22/17 Unknown Rx Phenylephrine/Dm/Acetaminop/GG 10 ml PO Q6H PRN #1 liquid 10/22/17 Unknown Rx [Mucinex Lmqw-Obr-Uknkdbwkcr Lq] Tobramycin 0.3% [Tobrex] 1 drop OD Q6H #1 bottle 10/22/17 Unknown Rx predniSONE [Deltasone] 20 mg PO QDAY #5 tab 10/22/17 Unknown Rx Acetaminophen/Codeine [Tylenol 1 tab PO Q6H PRN #12 tab 08/19/18 Unknown Rx /Codeine # 3 tab] Clindamycin [Clindamycin CAP] 300 mg PO Q8H #21 cap 08/19/18 Unknown Rx Naproxen [Naprosyn] 500 mg PO TID #12 tablet 08/19/18 Unknown Rx Nystas/Diphen/Xyl Visc/Mylanta 15 ml MM Q4H PRN #100 ml 08/19/18 Unknown Rx [Magic Mouthwash] Acetaminophen [Acetaminophen TAB] 1,000 mg PO Q6HR #30 tablet 04/02/19 Unknown Rx Acetaminophen [Acetaminophen TAB] 1,000 mg PO Q6HR PRN #30 tablet 04/02/19 Unknown Rx Lidocain2.5%/Prilocai2.5% [Emla] 5 gm TP ONCE #1 tube 04/02/19 Unknown Rx Metoclopramide [Reglan] 10 mg PO ACHS #6 tablet 04/02/19 Unknown Rx diphenhydrAMINE [Benadryl CAP] 25 mg PO Q6HR PRN #30 capsule 04/02/19 Unknown Rx predniSONE [Deltasone] 20 mg PO 18 1 Days #10 tablet 04/02/19 Unknown Rx Famotidine [Pepcid] 40 mg PO QHS #30 tablet 07/14/19 Unknown Rx HYDROcodone/APAP 5-325 [Berry 1 each PO Q4HR PRN #7 tablet 08/24/19 Unknown Rx 5/325] Sulfacetamide Sodium 5 ml OP TID #1 drops 08/24/19 Unknown Rx [Sulfacetamide Sodium 10%] ED Physical Exam - General Limitations: No Limitations General appearance: alert, in no apparent distress - Head Head exam: Present: atraumatic, normocephalic - Eye Eye exam: Present: normal appearance, PERRL, EOMI, conjunctival injection, periorbital swelling. Absent: nystagmus, periorbital tenderness, other - ENT ENT exam: Present: mucous membranes moist. Absent: normal orophraynx (some erythema) - Neck Neck exam: Present: normal inspection - Respiratory Respiratory exam: Present: normal lung sounds bilaterally. Absent: respiratory distress - Cardiovascular Cardiovascular Exam: Present: regular rate, normal rhythm. Absent: systolic murmur, diastolic murmur, rubs, gallop - GI/Abdominal GI/Abdominal exam: Present: soft, normal bowel sounds. Absent: distended, tenderness, guarding, rebound, rigid - Extremities Exam Extremities exam: Present: normal inspection - Back Exam Back exam: Present: normal inspection - Neurological Exam Neurological exam: Present: alert, oriented X3, CN II-XII intact. Absent: motor sensory deficit - Psychiatric Psychiatric exam: Present: normal affect, normal mood - Skin Skin exam: Present: warm, dry, intact, normal color. Absent: rash ED Course Vital Signs 08/24/19 04:27 Temperature 98.1 F Pulse Rate 90 Respiratory 18 Rate Blood Pressure 129/60 O2 Sat by Pulse 100 Oximetry Critical care attestation.: If time is entered above; I have spent that time in minutes in the direct care of this critically ill patient, excluding procedure time. ED Disposition Clinical Impression: Viral URI Conjunctivitis Qualifiers: Conjunctivitis type: unspecified Laterality: left Qualified Code(s): H10.9 - Unspecified conjunctivitis Disposition: TO HOME OR SELFCARE Is pt being admited?: No Does the pt Need Aspirin: No Condition: Stable Instructions: Upper Respiratory Infection (ED), Conjunctivitis (ED) Additional Instructions: It is essential that you get a full eye exam by a qualified practitioner tomorrow. Avoid contact with others as the conjunctivitis is likely contagious. Prescriptions: HYDROcodone/APAP 5-325 [Berry 5/325] 1 each PO Q4HR PRN #7 tablet PRN Reason: Pain Sulfacetamide Sodium [Sulfacetamide Sodium 10%] 5 ml OP TID #1 drops Referrals: PRIMARY CARE, [Primary Care Provider] - 3-5 Days HARI ANDERSON MD [Staff Physician] - 24 Hours Time of Disposition: 09:02
== END 2019-08-24 09:19 | disposition home or self-care (01) ==
LOC: ED 04:21
DX: H10.89 Other conjunctivitis (principal); J06.9 Acute upper respiratory infection, unspecified; E11.9 Type 2 diabetes mellitus without complications; J45.909 Unspecified asthma, uncomplicated; Z98.890 Other specified postprocedural states; Z87.891 Personal history of nicotine dependence; Z79.899 Other long term (current) drug therapy; Z88.6 Allergy status to analgesic agent; Z91.018 Allergy to other foods
CPT/HCPCS: 99281

== ENCOUNTER 2020-05-24 21:28 | Emergency (ER) | payer OTHER ==
[2020-05-24 23:07] LABS: Basophils % (Auto) 0.4 % (0.0-1.8); Eosinophils # (Auto) 0.1 K/mm3 (0.0-0.4); Eosinophils % (Auto) 1.5 % (0.0-4.3); Hematocrit 38.5 % (30.3-42.9); Hemoglobin 12.8 gm/dl (10.1-14.3); Lymphocytes % (Auto) 30.5 % (13.4-35.0); Mean Corpuscular HGB Conc 33 % (30-34); Mean Corpuscular Volume 91 fl (79-97); Monocytes # (Auto) 0.5 K/mm3 (0.0-0.8); Monocytes % (Auto) 7.8 % (0.0-7.3); Platelet Count 211 K/mm3 (140-440); Red Blood Count 4.25 M/mm3 (3.65-5.03); Red Cell Distribution Width 13.9 % (13.2-15.2)
[2020-05-24 23:32] LABS: Alanine Aminotransferase 40 units/L (7-56); Blood Urea Nitrogen 11 mg/dL (7-17); Calcium 8.5 mg/dL (8.4-10.2); Hemolysis Index 3
[2020-05-24 23:47] LABS: BUN/Creatinine Ratio 18
[2020-05-25 01:06] LABS: Bilirubin,Urine NEG (Negative); Blood,Urine NEG (Negative); Color,Urine Yellow (Yellow); Mucus,Urine 3+ /HPF; Urobilinogen,Urine < 2.0 mg/dL (<2.0)
--- NOTE | 2020-05-25 03:04 | Emergency Department Report ---
ED Abdominal Pain HPI - General Chief Complaint: Abdominal Pain Stated Complaint: ABD PAIN Source: patient Mode of arrival: Ambulatory Limitations: No Limitations - History of Present Illness Initial Comments: 35-year-old -[place] female presents to the emergency room for epigastric abdominal pain that radiates to her back since yesterday. Patient states that the pain comes and goes. She says the pain is sharp. She denies any nausea vomiting, no vaginal bleeding, no vaginal discharge or dysuria. She is 2 para 2. Last menstrual period was mid March 2020. She currently has no primary care provider. MD Complaint: abdominal pain Onset/Timin -: days(s) Location: epigastric Radiation: back Severity scale (0 -10): 8 Quality: sharp Consistency: intermittent Improves With: nothing Worsens With: other (Laying back) Associated Symptoms: denies other symptoms - Related Data Previous Rx's Medication Instructions Recorded Last Taken Type oxyCODONE /ACETAMINOPHEN [Percocet 1 - 2 tab PO Q4HR PRN #30 tablet 07/14/14 Unknown Rx 5/325 mg] Ibuprofen [Motrin 600 MG tab] 800 mg PO Q8H PRN #30 tablet 09/29/15 Unknown Rx Promethazine [Phenergan TAB] 25 mg PO Q6HR PRN #20 tab 09/29/15 Unknown Rx traMADoL [Ultram] 50 mg PO Q6HR PRN #20 tablet 09/29/15 Unknown Rx Albuterol Sulfate [Proair 90 mcg IH Q4-6H PRN 30 Days #1 10/09/17 Unknown Rx Respiclick] aer.pow.ba Fluticasone [Flonase] 1 spray NS QDAY #1 bottle 10/09/17 Unknown Rx Pseudoeph/Dm/Guaifen/Acetamin [Sm 1 each PO Q12H 5 Days #10 capsule 10/09/17 Unknown Rx Cough-Cold M-S Liq Capsule] Albuterol Sulfate [Ventolin Hfa] 1 gm IH Q4H PRN #1 hfa.aer.ad 10/22/17 Unknown Rx Ibuprofen [Motrin] 800 mg PO Q8HR PRN #30 tablet 10/22/17 Unknown Rx Phenylephrine/Dm/Acetaminop/GG 10 ml PO Q6H PRN #1 liquid 10/22/17 Unknown Rx [Mucinex Obhw-Dkq-Mvhxnfrkry Lq] Tobramycin 0.3% [Tobrex] 1 drop OD Q6H #1 bottle 10/22/17 Unknown Rx predniSONE [Deltasone] 20 mg PO QDAY #5 tab 10/22/17 Unknown Rx Acetaminophen/Codeine [Tylenol 1 tab PO Q6H PRN #12 tab 08/19/18 Unknown Rx /Codeine # 3 tab] Clindamycin [Clindamycin CAP] 300 mg PO Q8H #21 cap 08/19/18 Unknown Rx Naproxen [Naprosyn] 500 mg PO TID #12 tablet 08/19/18 Unknown Rx Nystas/Diphen/Xyl Visc/Mylanta 15 ml MM Q4H PRN #100 ml 08/19/18 Unknown Rx [Magic Mouthwash] Acetaminophen [Acetaminophen TAB] 1,000 mg PO Q6HR #30 tablet 04/02/19 Unknown Rx Acetaminophen [Acetaminophen TAB] 1,000 mg PO Q6HR PRN #30 tablet 04/02/19 Unknown Rx Lidocain2.5%/Prilocai2.5% [Emla] 5 gm TP ONCE #1 tube 04/02/19 Unknown Rx Metoclopramide [Reglan] 10 mg PO ACHS #6 tablet 04/02/19 Unknown Rx diphenhydrAMINE [Benadryl CAP] 25 mg PO Q6HR PRN #30 capsule 04/02/19 Unknown Rx predniSONE [Deltasone] 20 mg PO 18 1 Days #10 tablet 04/02/19 Unknown Rx Famotidine [Pepcid] 40 mg PO QHS #30 tablet 07/14/19 Unknown Rx HYDROcodone/APAP 5-325 [[place] 1 each PO Q4HR PRN #7 tablet 08/24/19 Unknown Rx 5/325] Sulfacetamide Sodium 5 ml OP TID #1 drops 08/24/19 Unknown Rx [Sulfacetamide Sodium 10%] Ibuprofen [Motrin 600 MG tab] 600 mg PO Q8H PRN #21 tablet 05/25/20 Unknown Rx Allergies Allergy/AdvReac Type Severity Reaction Status Date / Time tramadol Allergy Itching Verified 10/22/17 01:12 fat back Allergy Severe Swelling Uncoded 10/23/15 20:56 watermelon Allergy Swelling Uncoded 10/23/15 20:56 ED Review of Systems ROS: Stated complaint: ABD PAIN Other details as noted in HPI Comment: All other systems reviewed and negative ED Past Medical Hx - Past Medical History Hx Hypertension: No Hx Heart Attack/AMI: No Hx Congestive Heart Failure: No Hx Diabetes: Yes (GDM only, on oral meds) Hx Deep Vein Thrombosis: No Hx Liver Disease: No Hx Renal Disease: No Hx Sickle Cell Disease: No Hx Seizures: No Hx Asthma: Yes (used inhaler three days ago) Hx COPD: No Hx HIV: No Additional medical history: uterine fibroids - Surgical History Additional Surgical History: x 2 - Social History Smoking Status: Current Every Day Smoker Substance Use Type: None - Medications Home Medications: Home Medications Medication Instructions Recorded Confirmed Last Taken Type oxyCODONE /ACETAMINOPHEN [Percocet 1 - 2 tab PO Q4HR PRN #30 tablet 07/14/14 Unknown Rx 5/325 mg] Ibuprofen [Motrin 600 MG tab] 800 mg PO Q8H PRN #30 tablet 09/29/15 Unknown Rx Promethazine [Phenergan TAB] 25 mg PO Q6HR PRN #20 tab 09/29/15 Unknown Rx traMADoL [Ultram] 50 mg PO Q6HR PRN #20 tablet 09/29/15 Unknown Rx Albuterol Sulfate [Proair 90 mcg IH Q4-6H PRN 30 Days #1 10/09/17 Unknown Rx Respiclick] aer.pow.ba Fluticasone [Flonase] 1 spray NS QDAY #1 bottle 10/09/17 Unknown Rx Pseudoeph/Dm/Guaifen/Acetamin [Sm 1 each PO Q12H 5 Days #10 capsule 10/09/17 Unknown Rx Cough-Cold M-S Liq Capsule] Albuterol Sulfate [Ventolin Hfa] 1 gm IH Q4H PRN #1 hfa.aer.ad 10/22/17 Unknown Rx Ibuprofen [Motrin] 800 mg PO Q8HR PRN #30 tablet 10/22/17 Unknown Rx Phenylephrine/Dm/Acetaminop/GG 10 ml PO Q6H PRN #1 liquid 10/22/17 Unknown Rx [Mucinex Dbsr-Rri-Eqegexwhug Lq] Tobramycin 0.3% [Tobrex] 1 drop OD Q6H #1 bottle 10/22/17 Unknown Rx predniSONE [Deltasone] 20 mg PO QDAY #5 tab 10/22/17 Unknown Rx Acetaminophen/Codeine [Tylenol 1 tab PO Q6H PRN #12 tab 08/19/18 Unknown Rx /Codeine # 3 tab] Clindamycin [Clindamycin CAP] 300 mg PO Q8H #21 cap 08/19/18 Unknown Rx Naproxen [Naprosyn] 500 mg PO TID #12 tablet 08/19/18 Unknown Rx Nystas/Diphen/Xyl Visc/Mylanta 15 ml MM Q4H PRN #100 ml 08/19/18 Unknown Rx [Magic Mouthwash] Acetaminophen [Acetaminophen TAB] 1,000 mg PO Q6HR #30 tablet 04/02/19 Unknown Rx Acetaminophen [Acetaminophen TAB] 1,000 mg PO Q6HR PRN #30 tablet 04/02/19 Unknown Rx Lidocain2.5%/Prilocai2.5% [Emla] 5 gm TP ONCE #1 tube 04/02/19 Unknown Rx Metoclopramide [Reglan] 10 mg PO ACHS #6 tablet 04/02/19 Unknown Rx diphenhydrAMINE [Benadryl CAP] 25 mg PO Q6HR PRN #30 capsule 04/02/19 Unknown Rx predniSONE [Deltasone] 20 mg PO 18 1 Days #10 tablet 04/02/19 Unknown Rx Famotidine [Pepcid] 40 mg PO QHS #30 tablet 07/14/19 Unknown Rx HYDROcodone/APAP 5-325 [[place] 1 each PO Q4HR PRN #7 tablet 08/24/19 Unknown Rx 5/325] Sulfacetamide Sodium 5 ml OP TID #1 drops 08/24/19 Unknown Rx [Sulfacetamide Sodium 10%] Ibuprofen [Motrin 600 MG tab] 600 mg PO Q8H PRN #21 tablet 05/25/20 Unknown Rx ED Physical Exam - General Limitations: No Limitations General appearance: alert, in no apparent distress, obese - Head Head exam: Present: atraumatic, normocephalic - Eye Eye exam: Present: normal appearance - ENT ENT exam: Present: mucous membranes moist - Neck Neck exam: Present: normal inspection - Respiratory Respiratory exam: Present: normal lung sounds bilaterally. Absent: respiratory distress - Cardiovascular Cardiovascular Exam: Present: regular rate, normal rhythm. Absent: systolic murmur, diastolic murmur, rubs, gallop - GI/Abdominal GI/Abdominal exam: Present: soft, tenderness (Epigastric), hernia (Epigastric). Absent: distended - Extremities Exam Extremities exam: Present: normal inspection, full ROM - Back Exam Back exam: Present: full ROM - Neurological Exam Neurological exam: Present: alert, oriented X3 - Psychiatric Psychiatric exam: Present: normal affect, normal mood - Skin Skin exam: Present: warm, dry, intact, normal color. Absent: rash ED Course Vital Signs 05/24/20 05/25/20 22:19 03:15 Temperature 98.3 F Pulse Rate 85 Respiratory 20 18 Rate Blood Pressure 124/39 O2 Sat by Pulse 99 Oximetry ED Medical Decision Making - Lab Data Result diagrams: 05/24/20 22:43 05/24/20 22:43 - Radiology Data Radiology results: report reviewed, image reviewed Patient: JENN NOWAK MR#: [id number] : 1985 Acct:[id number] Age/Sex: 35 / F ADM Date: 05/24/20 Loc: ED Attending Dr: Ordering Physician: ANDRA NORIEGA Date of Service: 05/25/20 Procedure(s): CT abdomen pelvis w con Accession Number(s): [id number] cc: ANDRA NORIEGA CT abdomen pelvis w con INDICATION: Patient complains of epigastric abdominal pain. TECHNIQUE: All CT scans at this location are performed using the following dose modulation technique: Automated exposure control. CONTRAST: Omnipaque 300, 100 cc IV injection. COMPARISON: CT abdomen and pelvis 07/14/2019. CT ABDOMEN: The parenchymal organs are unremarkable in appearance other than mild fatty infiltration of the liver. Negative for abdominal mass, fluid collection or inflammation. The bowel is not dilated or thickened. CT PELVIS: A large fibroid uterus is present. Mild inflammation is seen at the right lower quadrant where small inflammatory lymph nodes are seen. A normal appendix is identified. IMPRESSION: 1. Mild inflammatory process right lower quadrant of uncertain etiology. The appendix is normal. 2. Large fibroid uterus. Signer Name: Zacarias Mac MD Signed: 05/25/2020 4:15 AM Workstation Name: [id number] Transcribed By: ES Dictated By: Zacarias Mac MD Electronically Authenticated By: Zacarias Mac MD Signed Date/Time: 05/25/20 0175 DD/ 0406 TD/TT: - Medical Decision Making 35-year-old -[place] female presents to the emergency room for epigastric abdominal pain that radiates to her back since yesterday. Patient states that the pain comes and goes. She says the pain is sharp. She denies any nausea vomiting, no vaginal bleeding, no vaginal discharge or dysuria. She is 2 para 2. Last menstrual period was mid March 2020. She currently has no primary care provider. CBC CMP urinalysis all within normal limits. Ordered a urine test CT abdomen with contrast. Critical care attestation.: If time is entered above; I have spent that time in minutes in the direct care of this critically ill patient, excluding procedure time. ED Disposition Clinical Impression: Epigastric abdominal pain, Severely overweight Fibroid, uterine Qualifiers: Uterine leiomyoma location: unspecified location Qualified Code(s): D25.9 - Leiomyoma of uterus, unspecified Disposition: - TO HOME OR SELFCARE Is pt being admited?: No Does the pt Need Aspirin: No Condition: Stable Instructions: Abdominal Pain (ED), Obesity (ED) Additional Instructions: CT scan shows to have a large fibroid no other acute abnormalities. Labs are all stable. Take ibuprofen for pain management and follow-up with your [employer]. Prescriptions: Ibuprofen [Motrin 600 MG tab] 600 mg PO Q8H PRN #21 tablet PRN Reason: Pain Referrals: PRIMARY CAREMD [Primary Care Provider] - 3-5 Days [facility] [Provider Group] - 3-5 Days Forms: Work/School Release Form(ED)
[2020-05-25] MEDS ORDERED: IBUPROFEN 600 MG TAB PO ONE (03:09)
[2020-05-25 03:23] LABS: HCG Qualitative,Urine Negative (Negative)
--- NOTE | 2020-05-25 04:19 | Cat Scan Report ---
CT abdomen pelvis w con INDICATION: Patient complains of epigastric abdominal pain. TECHNIQUE: All CT scans at this location are performed using the following dose modulation technique: Automated exposure control. CONTRAST: Omnipaque 300, 100 cc IV injection. COMPARISON: CT abdomen and pelvis 07/14/2019. CT ABDOMEN: The parenchymal organs are unremarkable in appearance other than mild fatty infiltration of the liver. Negative for abdominal mass, fluid collection or inflammation. The bowel is not dilated or thickened. CT PELVIS: A large fibroid uterus is present. Mild inflammation is seen at the right lower quadrant where small inflammatory lymph nodes are seen. A normal appendix is identified. IMPRESSION: 1. Mild inflammatory process right lower quadrant of uncertain etiology. The appendix is normal. 2. Large fibroid uterus. Signer Name: Zacarias Mac MD Signed: 05/25/2020 4:15 AM Workstation Name: [id number]
[2020-05-25 04:43] VITALS: BP 114/66
== END 2020-05-25 04:40 | disposition home or self-care (01) ==
LOC: ED 21:28
DX: D25.9 Leiomyoma of uterus, unspecified (principal); E11.9 Type 2 diabetes mellitus without complications; J45.909 Unspecified asthma, uncomplicated; F17.200 Nicotine dependence, unspecified, uncomplicated; Z79.899 Other long term (current) drug therapy; Z91.018 Allergy to other foods
CPT/HCPCS: 36415; 74177; 80053; 81001; 81025; 85025; 99284; Q9967

== ENCOUNTER 2021-10-16 07:46 | Emergency (ER) | payer SELFPAY ==
[2021-10-16] MEDS ORDERED: FLUORESCEIN 1 MG STRIP OP ONE (08:02)
[2021-10-16] MEDS ORDERED: ACETAMINOPHEN 500 MG TAB PO STA (08:02)
[2021-10-16] MEDS ORDERED: IBUPROFEN 800 MG TAB PO STA (08:02)
[2021-10-16] MEDS ORDERED: TETRACAINE 0.5% OPHTH SOLN 4ML OU PRN (08:02)
--- NOTE | 2021-10-16 08:57 | Emergency Department Report ---
ED General Adult HPI - General Chief complaint: Eye Problems Stated complaint: EYES RED Time Seen by Provider: 10/16/21 08:02 Source: patient Mode of arrival: Ambulatory Limitations: No Limitations - History of Present Illness Initial comments: 36-year-old -[place] female patient presents with complaints of bilateral eye pain and drainage x2 days. She states it began in her right eye and has began to move over to her left eye upon waking this morning. She states her eyes were crusted shut upon waking. She denies any trauma to the eyes, vi sanjeev changes, headache, or contact lens wearing. She rates her current pain as 8/10 in severity and states she does have some photophobia. She also denies any foreign body sensation. No known drug allergies per patient. -: Sudden Severity scale (0 -10): 6 - Related Data Previous Rx's Medication Instructions Recorded Last Taken Type oxyCODONE /ACETAMINOPHEN [Percocet 1 - 2 tab PO Q4HR PRN #30 tablet 07/14/14 Unknown Rx 5/325 mg] Ibuprofen [Motrin 600 MG tab] 800 mg PO Q8H PRN #30 tablet 09/29/15 Unknown Rx Promethazine [Phenergan TAB] 25 mg PO Q6HR PRN #20 tab 09/29/15 Unknown Rx traMADoL [Ultram] 50 mg PO Q6HR PRN #20 tablet 09/29/15 Unknown Rx Albuterol Sulfate [Proair 90 mcg IH Q4-6H PRN 30 Days #1 10/09/17 Unknown Rx Respiclick] aer.pow.ba Fluticasone [Flonase] 1 spray NS QDAY #1 bottle 10/09/17 Unknown Rx Pseudoeph/Dm/Guaifen/Acetamin [Sm 1 each PO Q12H 5 Days #10 capsule 10/09/17 Unknown Rx Cough-Cold M-S Liq Capsule] Albuterol Sulfate [Ventolin Hfa] 1 gm IH Q4H PRN #1 hfa.aer.ad 10/22/17 Unknown Rx Ibuprofen [Motrin] 800 mg PO Q8HR PRN #30 tablet 10/22/17 Unknown Rx Phenylephrine/Dm/Acetaminop/GG 10 ml PO Q6H PRN #1 liquid 10/22/17 Unknown Rx [Mucinex Mtcg-Ike-Gpiyicfqns Lq] Tobramycin 0.3% [Tobrex] 1 drop OD Q6H #1 bottle 10/22/17 Unknown Rx predniSONE [Deltasone] 20 mg PO QDAY #5 tab 10/22/17 Unknown Rx Clindamycin [Clindamycin CAP] 300 mg PO Q8H #21 cap 08/19/18 Unknown Rx Naproxen [Naprosyn] 500 mg PO TID #12 tablet 08/19/18 Unknown Rx Nystas/Diphen/Xyl Visc/Mylanta 15 ml MM Q4H PRN #100 ml 08/19/18 Unknown Rx [Magic Mouthwash] Acetaminophen [Acetaminophen TAB] 1,000 mg PO Q6HR #30 tablet 04/02/19 Unknown Rx Acetaminophen [Acetaminophen TAB] 1,000 mg PO Q6HR PRN #30 tablet 04/02/19 Unknown Rx Lidocain2.5%/Prilocai2.5% [Emla] 5 gm TP ONCE #1 tube 04/02/19 Unknown Rx Metoclopramide [Reglan] 10 mg PO ACHS #6 tablet 04/02/19 Unknown Rx diphenhydrAMINE [Benadryl CAP] 25 mg PO Q6HR PRN #30 capsule 04/02/19 Unknown Rx predniSONE [Deltasone] 20 mg PO 18 1 Days #10 tablet 04/02/19 Unknown Rx Famotidine [Pepcid] 40 mg PO QHS #30 tablet 07/14/19 Unknown Rx HYDROcodone/APAP 5-325 [[place] 1 each PO Q4HR PRN #7 tablet 08/24/19 Unknown Rx 5/325] Sulfacetamide Sodium 5 ml OP TID #1 drops 08/24/19 Unknown Rx [Sulfacetamide Sodium 10%] Ibuprofen [Motrin 600 MG tab] 600 mg PO Q8H PRN #21 tablet 05/25/20 Unknown Rx Acetaminophen/Codeine [Tylenol 1 tab PO Q6H PRN #4 tab 10/16/21 Unknown Rx /Codeine # 3 tab] Erythromycin [Erythromycin Ophth 1 cm OU Q3H 7 Days #1 tube 10/16/21 Unknown Rx Oint] Ibuprofen [Motrin 800 MG tab] 800 mg PO TID PRN #20 tablet 10/16/21 Unknown Rx Allergies Allergy/AdvReac Type Severity Reaction Status Date / Time tramadol Allergy Itching Verified 10/22/17 01:12 fat back Allergy Severe Swelling Uncoded 10/23/15 20:56 watermelon Allergy Swelling Uncoded 10/23/15 20:56 ED Review of Systems ROS: Stated complaint: EYES RED Other details as noted in HPI Constitutional: denies: chills, fever, malaise Eyes: eye pain, eye discharge. denies: vision change Neurological: denies: headache ED Past Medical Hx - Past Medical History Previous Medical History?: Yes Hx Hypertension: No Hx Heart Attack/AMI: No Hx Congestive Heart Failure: No Hx Diabetes: Yes (GDM only, on oral meds) Hx Deep Vein Thrombosis: No Hx Liver Disease: No Hx Renal Disease: No Hx Sickle Cell Disease: No Hx Seizures: No Hx Asthma: Yes (used inhaler three days ago) Hx COPD: No Hx HIV: No Additional medical history: uterine fibroids - Surgical History Past Surgical History?: Yes Additional Surgical History: x 2 - Social History Smoking Status: Current Every Day Smoker Substance Use Type: None - Medications Home Medications: Home Medications Medication Instructions Recorded Confirmed Last Taken Type oxyCODONE /ACETAMINOPHEN [Percocet 1 - 2 tab PO Q4HR PRN #30 tablet 07/14/14 Unknown Rx 5/325 mg] Ibuprofen [Motrin 600 MG tab] 800 mg PO Q8H PRN #30 tablet 09/29/15 Unknown Rx Promethazine [Phenergan TAB] 25 mg PO Q6HR PRN #20 tab 09/29/15 Unknown Rx traMADoL [Ultram] 50 mg PO Q6HR PRN #20 tablet 09/29/15 Unknown Rx Albuterol Sulfate [Proair 90 mcg IH Q4-6H PRN 30 Days #1 10/09/17 Unknown Rx Respiclick] aer.pow.ba Fluticasone [Flonase] 1 spray NS QDAY #1 bottle 10/09/17 Unknown Rx Pseudoeph/Dm/Guaifen/Acetamin [Sm 1 each PO Q12H 5 Days #10 capsule 10/09/17 Unknown Rx Cough-Cold M-S Liq Capsule] Albuterol Sulfate [Ventolin Hfa] 1 gm IH Q4H PRN #1 hfa.aer.ad 10/22/17 Unknown Rx Ibuprofen [Motrin] 800 mg PO Q8HR PRN #30 tablet 10/22/17 Unknown Rx Phenylephrine/Dm/Acetaminop/GG 10 ml PO Q6H PRN #1 liquid 10/22/17 Unknown Rx [Mucinex Ucda-Cxi-Nnmcucinnw Lq] Tobramycin 0.3% [Tobrex] 1 drop OD Q6H #1 bottle 10/22/17 Unknown Rx predniSONE [Deltasone] 20 mg PO QDAY #5 tab 10/22/17 Unknown Rx Clindamycin [Clindamycin CAP] 300 mg PO Q8H #21 cap 08/19/18 Unknown Rx Naproxen [Naprosyn] 500 mg PO TID #12 tablet 08/19/18 Unknown Rx Nystas/Diphen/Xyl Visc/Mylanta 15 ml MM Q4H PRN #100 ml 08/19/18 Unknown Rx [Magic Mouthwash] Acetaminophen [Acetaminophen TAB] 1,000 mg PO Q6HR #30 tablet 04/02/19 Unknown Rx Acetaminophen [Acetaminophen TAB] 1,000 mg PO Q6HR PRN #30 tablet 04/02/19 Unknown Rx Lidocain2.5%/Prilocai2.5% [Emla] 5 gm TP ONCE #1 tube 04/02/19 Unknown Rx Metoclopramide [Reglan] 10 mg PO ACHS #6 tablet 04/02/19 Unknown Rx diphenhydrAMINE [Benadryl CAP] 25 mg PO Q6HR PRN #30 capsule 04/02/19 Unknown Rx predniSONE [Deltasone] 20 mg PO 18 1 Days #10 tablet 04/02/19 Unknown Rx Famotidine [Pepcid] 40 mg PO QHS #30 tablet 07/14/19 Unknown Rx HYDROcodone/APAP 5-325 [[place] 1 each PO Q4HR PRN #7 tablet 08/24/19 Unknown Rx 5/325] Sulfacetamide Sodium 5 ml OP TID #1 drops 08/24/19 Unknown Rx [Sulfacetamide Sodium 10%] Ibuprofen [Motrin 600 MG tab] 600 mg PO Q8H PRN #21 tablet 05/25/20 Unknown Rx Acetaminophen/Codeine [Tylenol 1 tab PO Q6H PRN #4 tab 10/16/21 Unknown Rx /Codeine # 3 tab] Erythromycin [Erythromycin Ophth 1 cm OU Q3H 7 Days #1 tube 10/16/21 Unknown Rx Oint] Ibuprofen [Motrin 800 MG tab] 800 mg PO TID PRN #20 tablet 10/16/21 Unknown Rx ED Physical Exam - General Limitations: No Limitations General appearance: alert, in no apparent distress, obese - Head Head exam: Present: atraumatic, normocephalic - Eye Eye exam: Present: PERRL, EOMI, conjunctival injection (Bilateral, worse on the right; no foreign bodies noted in the eyes; no improvement in pain with tetracaine drops). Absent: periorbital swelling - Expanded Eye Exam Expanded Sclera/Conjunctival: Exudate: Bilateral - Respiratory Respiratory exam: Absent: respiratory distress - Cardiovascular Cardiovascular Exam: Present: regular rate - Neurological Exam Neurological exam: Present: alert, oriented X3 - Psychiatric Psychiatric exam: Present: normal affect, normal mood - Skin Skin exam: Present: warm, dry, intact, normal color. Absent: rash ED Course Vital Signs 10/16/21 07:53 Temperature 98.1 F Pulse Rate 88 Respiratory 18 Rate Blood Pressure 132/61 [Right] O2 Sat by Pulse 99 Oximetry ED Medical Decision Making - Medical Decision Making 36-year-old -[place] female patient presents with complaints of bilateral eye pain and drainage x2 days. She states it began in her right eye and has began to move over to her left eye upon waking this morning. She states her eyes were crusted shut upon waking. She denies any trauma to the eyes, vision changes, headache, or contact lens wearing. She rates her current pain as 8/10 in severity and states she does have some photophobia. She also denies any foreign body sensation. No known drug allergies per patient. Bilateral acute bacterial conjunctivitis noted. Will treat with erythromycin and pain medication. She is to follow-up with her primary care in 3 to 5 days as needed. Discussed in detail signs and symptoms that should prompt immediate return to the ED with patient who verbalizes understanding Critical care attestation.: If time is entered above; I have spent that time in minutes in the direct care of this critically ill patient, excluding procedure time. ED Disposition Clinical Impression: Acute conjunctivitis, bilateral Disposition: 01 HOME / SELF CARE / HOMELESS Is pt being admited?: No Condition: Stable Instructions: Bacterial Conjunctivitis, Adult, Pinh-dz-Eube Prescriptions: Erythromycin [Erythromycin Ophth Oint] 1 cm OU Q3H 7 Days #1 tube Ibuprofen [Motrin 800 MG tab] 800 mg PO TID PRN #20 tablet PRN Reason: Pain, Moderate (4-6) Acetaminophen/Codeine [Tylenol /Codeine # 3 tab] 1 tab PO Q6H PRN #4 tab PRN Reason: Pain , Severe (7-10) Referrals: PRIMARY CARE, [Primary Care Provider] - 3-5 Days Forms: Work/School Release Form(ED)
[2021-10-16 09:30] VITALS: BP 115/39
== END 2021-10-16 09:30 | disposition home or self-care (01) ==
LOC: ED 07:46
DX: H10.9 Unspecified conjunctivitis (principal); E11.9 Type 2 diabetes mellitus without complications; F17.200 Nicotine dependence, unspecified, uncomplicated; Z88.6 Allergy status to analgesic agent; Z91.018 Allergy to other foods; Z79.899 Other long term (current) drug therapy
CPT/HCPCS: 99282

== ENCOUNTER 2022-01-09 09:16 | Emergency (ER) | payer SELFPAY ==
[2022-01-09 09:28] VITALS: BP 120/34
--- NOTE | 2022-01-09 10:33 | XRay Report ---
CHEST 2 VIEWS INDICATION: sob. COMPARISON: None. FINDINGS: Support devices: None. Heart: Within normal limits. Lungs/Pleura: No acute air space or interstitial disease. No significant pleural effusion. IMPRESSION: No acute findings. Signer Name: Zacarias Mac MD Signed: 01/09/2022 10:28 AM Workstation Name: [id number]
--- NOTE | 2022-01-09 10:52 | Emergency Department Report ---
Minor Respiratory - HPI Chief Complaint: Dyspnea/Respdistress Stated Complaint: BODY CHANGING FROM HOT/COLD Time Seen by Provider: 01/09/22 09:48 Duration: 1 Day Pain Location: Facial, Throat Severity: mild Minor Respiratory: Yes Sore Throat, Yes Able to Tolerate Fluids, No Rhinorrhea, No Ear Pain, No Cough, No Sick Contacts, No Hemoptysis, No Chest Pain, No Shortness of Breath, No Fever Other History: Ms. Hunter is a 36-year-old female that comes to the emergency room with hot and cold flashes. This started yesterday. Patient denies having taken her temperature at home and having a fever. She endorses cough when lying flat. She has a headache. She has a sore throat. Patient states that she was wheezing last night. She is not wheezing however today. She states that she does not have an inhaler or nebulizer at home. Patient denies chest pain. Patient has not been immunized for COVID ED Review of Systems ROS: Stated complaint: BODY CHANGING FROM HOT/COLD Other details as noted in HPI Comment: All other systems reviewed and negative ED Past Medical Hx - Past Medical History Previous Medical History?: Yes Hx Hypertension: No Hx Heart Attack/AMI: No Hx Congestive Heart Failure: No Hx Diabetes: Yes (GDM only, on oral meds) Hx Deep Vein Thrombosis: No Hx Liver Disease: No Hx Renal Disease: No Hx Sickle Cell Disease: No Hx Seizures: No Hx Asthma: Yes (used inhaler three days ago) Hx COPD: No Hx HIV: No Additional medical history: uterine fibroids - Surgical History Past Surgical History?: No Additional Surgical History: x 2 - Family History Family history: no significant - Social History Smoking Status: Current Every Day Smoker Substance Use Type: None - Medications Home Medications: Home Medications Medication Instructions Recorded Confirmed Last Taken Type oxyCODONE /ACETAMINOPHEN [Percocet 1 - 2 tab PO Q4HR PRN #30 tablet 07/14/14 Unknown Rx 5/325 mg] Ibuprofen [Motrin 600 MG tab] 800 mg PO Q8H PRN #30 tablet 09/29/15 Unknown Rx Promethazine [Phenergan TAB] 25 mg PO Q6HR PRN #20 tab 09/29/15 Unknown Rx traMADoL [Ultram] 50 mg PO Q6HR PRN #20 tablet 09/29/15 Unknown Rx Albuterol Sulfate [Proair 90 mcg IH Q4-6H PRN 30 Days #1 10/09/17 Unknown Rx Respiclick] aer.pow.ba Fluticasone [Flonase] 1 spray NS QDAY #1 bottle 10/09/17 Unknown Rx Pseudoeph/Dm/Guaifen/Acetamin [Sm 1 each PO Q12H 5 Days #10 capsule 10/09/17 Unknown Rx Cough-Cold M-S Liq Capsule] Albuterol Sulfate [Ventolin Hfa] 1 gm IH Q4H PRN #1 hfa.aer.ad 10/22/17 Unknown Rx Ibuprofen [Motrin] 800 mg PO Q8HR PRN #30 tablet 10/22/17 Unknown Rx Phenylephrine/Dm/Acetaminop/GG 10 ml PO Q6H PRN #1 liquid 10/22/17 Unknown Rx [Mucinex Ynnl-Ppl-Mfwagznepx Lq] Tobramycin 0.3% [Tobrex] 1 drop OD Q6H #1 bottle 10/22/17 Unknown Rx predniSONE [Deltasone] 20 mg PO QDAY #5 tab 10/22/17 Unknown Rx Clindamycin [Clindamycin CAP] 300 mg PO Q8H #21 cap 08/19/18 Unknown Rx Naproxen [Naprosyn] 500 mg PO TID #12 tablet 08/19/18 Unknown Rx Nystas/Diphen/Xyl Visc/Mylanta 15 ml MM Q4H PRN #100 ml 08/19/18 Unknown Rx [Magic Mouthwash] Acetaminophen [Acetaminophen TAB] 1,000 mg PO Q6HR #30 tablet 04/02/19 Unknown Rx Acetaminophen [Acetaminophen TAB] 1,000 mg PO Q6HR PRN #30 tablet 04/02/19 Unknown Rx Lidocain2.5%/Prilocai2.5% [Emla] 5 gm TP ONCE #1 tube 04/02/19 Unknown Rx Metoclopramide [Reglan] 10 mg PO ACHS #6 tablet 04/02/19 Unknown Rx diphenhydrAMINE [Benadryl CAP] 25 mg PO Q6HR PRN #30 capsule 04/02/19 Unknown Rx predniSONE [Deltasone] 20 mg PO 18 1 Days #10 tablet 04/02/19 Unknown Rx Famotidine [Pepcid] 40 mg PO QHS #30 tablet 07/14/19 Unknown Rx HYDROcodone/APAP 5-325 [[place] 1 each PO Q4HR PRN #7 tablet 08/24/19 Unknown Rx 5/325] Sulfacetamide Sodium 5 ml OP TID #1 drops 08/24/19 Unknown Rx [Sulfacetamide Sodium 10%] Ibuprofen [Motrin 600 MG tab] 600 mg PO Q8H PRN #21 tablet 05/25/20 Unknown Rx Acetaminophen/Codeine [Tylenol 1 tab PO Q6H PRN #4 tab 10/16/21 Unknown Rx /Codeine # 3 tab] Erythromycin [Erythromycin Ophth 1 cm OU Q3H 7 Days #1 tube 10/16/21 Unknown Rx Oint] Ibuprofen [Motrin 800 MG tab] 800 mg PO TID PRN #20 tablet 10/16/21 Unknown Rx Albuterol Mdi (or & Nicu Only) 2 puff IH QID PRN #1 inhalation 01/09/22 Unknown Rx [ProAir HFA Inhaler] Cetirizine HCl [ZyrTEC] 10 mg PO DAILY #30 capsule 01/09/22 Unknown Rx Fluticasone [Flonase] 1 spray NS QDAY #1 bottle 01/09/22 Unknown Rx predniSONE [Deltasone] 20 mg PO DAILY #5 tablet 01/09/22 Unknown Rx Minor Respiratory Exam - Exam General: Vital signs noted. No distress. Alert and acting appropriately. HEENT: Yes Pharyngeal Erythema, Yes Pharyngeal Exudates, Yes Moist Mucous Membranes, Yes Frontal Tenderness, Yes Maxillary Tenderness, No Rhinorrhea, No Conjuctival Injection Ear: Neither TM Bulge, Neither TM Erythema, Neither EAC Pain, Neither EAC Discharge Neck: Yes Supple, No Adenopathy Lungs: Yes Good Air Exchange, No Wheezes, No Ronchi, No Stridor, No Cough, No Labored Respirations, No Retractions, No Use of Accessory Muscles, No Other Abnormal Lung Sounds Heart: Yes Regular, No Murmur Abdomen: Yes Normal Bowel Sounds, No Tenderness, No Peritoneal Signs Skin: No Rash, No Edema Neurologic: Alert and oriented, no deficits. Musculoskeletal: Unremarkable. ED Course Vital Signs 01/09/22 09:25 Temperature 98.8 F Pulse Rate 99 H Respiratory 18 Rate Blood Pressure 120/34 [Right] O2 Sat by Pulse 98 Oximetry ED Medical Decision Making - Radiology Data Radiology results: report reviewed, image reviewed No acute process - Medical Decision Making Vital Signs 01/09/22 09:25 Temperature 98.8 F Pulse Rate 99 H Respiratory 18 Rate Blood Pressure 120/34 [Right] O2 Sat by Pulse 98 Oximetry X-ray noted. No consolidation or suggestion of COVID Patient has acute on chronic asthma. She has no fever on exam. She does endorse chills. She has no purulent sputum. Patient not been given antibiotics at this time. Patient discharged home with discharge plan of care including diet, activity, medications and follow-up. She verbalizes understanding of plan of care. On discharge patient is ambulatory, taking p.o. and in no acute distress. - Differential Diagnosis Asthma exacerbation, pneumonia, COVID Critical care attestation.: If time is entered above; I have spent that time in minutes in the direct care of this critically ill patient, excluding procedure time. ED Disposition Clinical Impression: Asthma with acute exacerbation Qualifiers: Asthma severity: mild Asthma persistence: intermittent Qualified Code(s): J45.21 - Mild intermittent asthma with (acute) exacerbation Sinusitis Qualifiers: Sinusitis location: frontal Chronicity: acute Recurrence: non-recurrent Qualified Code(s): J01.10 - Acute frontal sinusitis, unspecified Disposition: HOME / SELF CARE / HOMELESS Is pt being admited?: No Does the pt Need Aspirin: No Condition: Stable Instructions: Asthma, Adult Additional Instructions: Medications as ordered today Motrin or Tylenol for pain Day well-hydrated Follow-up with PCP in 48 hours Referral below Prescriptions: predniSONE [Deltasone] 20 mg PO DAILY #5 tablet Fluticasone [Flonase] 1 spray NS QDAY #1 bottle Albuterol Mdi (or & Nicu Only) [ProAir HFA Inhaler] 2 puff IH QID PRN #1 inhalation PRN Reason: Shortness Of Breath Cetirizine HCl [ZyrTEC] 10 mg PO DAILY #30 capsule Referrals: SERGIO WHITAKER MD [Primary Care Provider] - 3-5 Days Forms: Work/School Release Form(ED) Time of Disposition: 10:55
== END 2022-01-09 11:45 | disposition home or self-care (01) ==
LOC: ED 09:16
DX: J45.901 Unspecified asthma with (acute) exacerbation (principal); J32.9 Chronic sinusitis, unspecified; E11.9 Type 2 diabetes mellitus without complications; Z79.899 Other long term (current) drug therapy; Z98.890 Other specified postprocedural states; F17.200 Nicotine dependence, unspecified, uncomplicated
CPT/HCPCS: 71046; 99283

== ENCOUNTER 2022-05-11 18:06 | Emergency (ER) | payer SELFPAY ==
[2022-05-12 00:51] VITALS: BP 112/50
[2022-05-12] MEDS ORDERED: HYDROcodone/ACETAMINOPHEN 5-325 MG TAB PO ONE (02:13)
[2022-05-12] MEDS ORDERED: cephALEXin 500 MG CAP PO ONE (02:13)
--- NOTE | 2022-05-12 02:14 | Emergency Department Report ---
ED General Adult HPI - General Chief complaint: Skin/Abscess/Foreign Body Stated complaint: BUMP UNDER ARMPIT Time Seen by Provider: 05/12/22 01:28 Source: patient Mode of arrival: Ambulatory Limitations: No Limitations - History of Present Illness Initial comments: Is a 37-year-old female who presents for abscess to left axillary. Patient has history of hidradenitis. Patient states pain and erythema mild drainage. Patient denies diabetes or hypertension. There is no nausea no vomiting. No fevers or chills. Symptoms exacerbated by movement and palpation. Symptoms are relieved by nothing tried. Patient states flares 2-3 times per year. - Related Data Previous Rx's Medication Instructions Recorded Last Taken Type oxyCODONE /ACETAMINOPHEN [Percocet 1 - 2 tab PO Q4HR PRN #30 tablet 07/14/14 Unknown Rx 5/325 mg] Ibuprofen [Motrin 600 MG tab] 800 mg PO Q8H PRN #30 tablet 09/29/15 Unknown Rx Promethazine [Phenergan TAB] 25 mg PO Q6HR PRN #20 tab 09/29/15 Unknown Rx traMADoL [Ultram] 50 mg PO Q6HR PRN #20 tablet 09/29/15 Unknown Rx Albuterol Sulfate [Proair 90 mcg IH Q4-6H PRN 30 Days #1 10/09/17 Unknown Rx Respiclick] aer.pow.ba Fluticasone [Flonase] 1 spray NS QDAY #1 bottle 10/09/17 Unknown Rx Pseudoeph/Dm/Guaifen/Acetamin [Sm 1 each PO Q12H 5 Days #10 capsule 10/09/17 Unknown Rx Cough-Cold M-S Liq Capsule] Albuterol Sulfate [Ventolin Hfa] 1 gm IH Q4H PRN #1 hfa.aer.ad 10/22/17 Unknown Rx Ibuprofen [Motrin] 800 mg PO Q8HR PRN #30 tablet 10/22/17 Unknown Rx Phenylephrine/Dm/Acetaminop/GG 10 ml PO Q6H PRN #1 liquid 10/22/17 Unknown Rx [Mucinex Bhzg-Qdi-Cgidygqrwp Lq] Tobramycin 0.3% [Tobrex] 1 drop OD Q6H #1 bottle 10/22/17 Unknown Rx predniSONE [Deltasone] 20 mg PO QDAY #5 tab 10/22/17 Unknown Rx Clindamycin [Clindamycin CAP] 300 mg PO Q8H #21 cap 08/19/18 Unknown Rx Naproxen [Naprosyn] 500 mg PO TID #12 tablet 08/19/18 Unknown Rx Nystas/Diphen/Xyl Visc/Mylanta 15 ml MM Q4H PRN #100 ml 08/19/18 Unknown Rx [Magic Mouthwash] Acetaminophen [Acetaminophen TAB] 1,000 mg PO Q6HR #30 tablet 04/02/19 Unknown Rx Acetaminophen [Acetaminophen TAB] 1,000 mg PO Q6HR PRN #30 tablet 04/02/19 Unknown Rx Lidocain2.5%/Prilocai2.5% [Emla] 5 gm TP ONCE #1 tube 04/02/19 Unknown Rx Metoclopramide [Reglan] 10 mg PO ACHS #6 tablet 04/02/19 Unknown Rx diphenhydrAMINE [Benadryl CAP] 25 mg PO Q6HR PRN #30 capsule 04/02/19 Unknown Rx predniSONE [Deltasone] 20 mg PO 18 1 Days #10 tablet 04/02/19 Unknown Rx Famotidine [Pepcid] 40 mg PO QHS #30 tablet 07/14/19 Unknown Rx HYDROcodone/APAP 5-325 [[place] 1 each PO Q4HR PRN #7 tablet 08/24/19 Unknown Rx 5/325] Sulfacetamide Sodium 5 ml OP TID #1 drops 08/24/19 Unknown Rx [Sulfacetamide Sodium 10%] Ibuprofen [Motrin 600 MG tab] 600 mg PO Q8H PRN #21 tablet 05/25/20 Unknown Rx Acetaminophen/Codeine [Tylenol 1 tab PO Q6H PRN #4 tab 10/16/21 Unknown Rx /Codeine # 3 tab] Erythromycin [Erythromycin Ophth 1 cm OU Q3H 7 Days #1 tube 10/16/21 Unknown Rx Oint] Ibuprofen [Motrin 800 MG tab] 800 mg PO TID PRN #20 tablet 10/16/21 Unknown Rx Albuterol Mdi (or & Nicu Only) 2 puff IH QID PRN #1 inhalation 01/09/22 Unknown Rx [ProAir HFA Inhaler] Cetirizine HCl [ZyrTEC] 10 mg PO DAILY #30 capsule 01/09/22 Unknown Rx Fluticasone [Flonase] 1 spray NS QDAY #1 bottle 01/09/22 Unknown Rx predniSONE [Deltasone] 20 mg PO DAILY #5 tablet 01/09/22 Unknown Rx Acetaminophen/Codeine [Tylenol 1 tab PO Q6H PRN #12 tab 05/12/22 Unknown Rx /Codeine # 3 tab] cephALEXin [Keflex] 500 mg PO Q8HR 7 Days #21 cap 05/12/22 Unknown Rx Allergies Allergy/AdvReac Type Severity Reaction Status Date / Time tramadol Allergy Itching Verified 10/22/17 01:12 fat back Allergy Severe Swelling Uncoded 10/23/15 20:56 watermelon Allergy Swelling Uncoded 10/23/15 20:56 ED Review of Systems ROS: Stated complaint: BUMP UNDER ARMPIT Other details as noted in HPI Constitutional: denies: chills, fever Eyes: denies: eye pain, eye discharge, vision change ENT: denies: ear pain, throat pain Respiratory: denies: cough, shortness of breath, wheezing Cardiovascular: denies: chest pain, palpitations Endocrine: no symptoms reported Gastrointestinal: denies: abdominal pain, nausea, diarrhea Genitourinary: denies: urgency, dysuria, discharge Musculoskeletal: denies: back pain, joint swelling, arthralgia Skin: other (Abscess left upper arm). denies: rash, lesions Neurological: denies: headache, weakness, paresthesias Psychiatric: denies: anxiety, depression Hematological/Lymphatic: denies: easy bleeding, easy bruising ED Past Medical Hx - Past Medical History Hx Hypertension: No Hx Heart Attack/AMI: No Hx Congestive Heart Failure: No Hx Diabetes: Yes (GDM only, on oral meds) Hx Deep Vein Thrombosis: No Hx Liver Disease: No Hx Renal Disease: No Hx Sickle Cell Disease: No Hx Seizures: No Hx Asthma: Yes (used inhaler three days ago) Hx COPD: No Hx HIV: No Additional medical history: uterine fibroids - Surgical History Additional Surgical History: x 2 - Social History Smoking Status: Current Every Day Smoker Substance Use Type: None - Medications Home Medications: Home Medications Medication Instructions Recorded Confirmed Last Taken Type oxyCODONE /ACETAMINOPHEN [Percocet 1 - 2 tab PO Q4HR PRN #30 tablet 07/14/14 Unknown Rx 5/325 mg] Ibuprofen [Motrin 600 MG tab] 800 mg PO Q8H PRN #30 tablet 09/29/15 Unknown Rx Promethazine [Phenergan TAB] 25 mg PO Q6HR PRN #20 tab 09/29/15 Unknown Rx traMADoL [Ultram] 50 mg PO Q6HR PRN #20 tablet 09/29/15 Unknown Rx Albuterol Sulfate [Proair 90 mcg IH Q4-6H PRN 30 Days #1 10/09/17 Unknown Rx Respiclick] aer.pow.ba Fluticasone [Flonase] 1 spray NS QDAY #1 bottle 10/09/17 Unknown Rx Pseudoeph/Dm/Guaifen/Acetamin [Sm 1 each PO Q12H 5 Days #10 capsule 10/09/17 Unknown Rx Cough-Cold M-S Liq Capsule] Albuterol Sulfate [Ventolin Hfa] 1 gm IH Q4H PRN #1 hfa.aer.ad 10/22/17 Unknown Rx Ibuprofen [Motrin] 800 mg PO Q8HR PRN #30 tablet 10/22/17 Unknown Rx Phenylephrine/Dm/Acetaminop/GG 10 ml PO Q6H PRN #1 liquid 10/22/17 Unknown Rx [Mucinex Qhrs-Fdp-Jkrgnnbtbt Lq] Tobramycin 0.3% [Tobrex] 1 drop OD Q6H #1 bottle 10/22/17 Unknown Rx predniSONE [Deltasone] 20 mg PO QDAY #5 tab 10/22/17 Unknown Rx Clindamycin [Clindamycin CAP] 300 mg PO Q8H #21 cap 08/19/18 Unknown Rx Naproxen [Naprosyn] 500 mg PO TID #12 tablet 08/19/18 Unknown Rx Nystas/Diphen/Xyl Visc/Mylanta 15 ml MM Q4H PRN #100 ml 08/19/18 Unknown Rx [Magic Mouthwash] Acetaminophen [Acetaminophen TAB] 1,000 mg PO Q6HR #30 tablet 04/02/19 Unknown Rx Acetaminophen [Acetaminophen TAB] 1,000 mg PO Q6HR PRN #30 tablet 04/02/19 Unknown Rx Lidocain2.5%/Prilocai2.5% [Emla] 5 gm TP ONCE #1 tube 04/02/19 Unknown Rx Metoclopramide [Reglan] 10 mg PO ACHS #6 tablet 04/02/19 Unknown Rx diphenhydrAMINE [Benadryl CAP] 25 mg PO Q6HR PRN #30 capsule 04/02/19 Unknown Rx predniSONE [Deltasone] 20 mg PO 18 1 Days #10 tablet 04/02/19 Unknown Rx Famotidine [Pepcid] 40 mg PO QHS #30 tablet 07/14/19 Unknown Rx HYDROcodone/APAP 5-325 [[place] 1 each PO Q4HR PRN #7 tablet 08/24/19 Unknown Rx 5/325] Sulfacetamide Sodium 5 ml OP TID #1 drops 08/24/19 Unknown Rx [Sulfacetamide Sodium 10%] Ibuprofen [Motrin 600 MG tab] 600 mg PO Q8H PRN #21 tablet 05/25/20 Unknown Rx Acetaminophen/Codeine [Tylenol 1 tab PO Q6H PRN #4 tab 10/16/21 Unknown Rx /Codeine # 3 tab] Erythromycin [Erythromycin Ophth 1 cm OU Q3H 7 Days #1 tube 10/16/21 Unknown Rx Oint] Ibuprofen [Motrin 800 MG tab] 800 mg PO TID PRN #20 tablet 10/16/21 Unknown Rx Albuterol Mdi (or & Nicu Only) 2 puff IH QID PRN #1 inhalation 01/09/22 Unknown Rx [ProAir HFA Inhaler] Cetirizine HCl [ZyrTEC] 10 mg PO DAILY #30 capsule 01/09/22 Unknown Rx Fluticasone [Flonase] 1 spray NS QDAY #1 bottle 01/09/22 Unknown Rx predniSONE [Deltasone] 20 mg PO DAILY #5 tablet 01/09/22 Unknown Rx Acetaminophen/Codeine [Tylenol 1 tab PO Q6H PRN #12 tab 05/12/22 Unknown Rx /Codeine # 3 tab] cephALEXin [Keflex] 500 mg PO Q8HR 7 Days #21 cap 05/12/22 Unknown Rx ED Physical Exam - General Limitations: No Limitations General appearance: alert, in no apparent distress - Head Head exam: Present: normocephalic, normal inspection - Eye Eye exam: Present: EOMI Pupils: Present: normal accommodation - ENT ENT exam: Present: mucous membranes moist - Neck Neck exam: Present: normal inspection, full ROM. Absent: tenderness, lymphadenopathy - Respiratory Respiratory exam: Present: normal lung sounds bilaterally. Absent: respiratory distress, wheezes - Cardiovascular Cardiovascular Exam: Present: regular rate, normal rhythm, normal heart sounds. Absent: systolic murmur, diastolic murmur, rubs, gallop - GI/Abdominal GI/Abdominal exam: Present: soft, normal bowel sounds. Absent: distended, tenderness - Rectal Rectal exam: Present: deferred - Extremities Exam Extremities exam: Present: normal inspection, full ROM, tenderness (Left upper arm abscess 1 x 3 cm erythema fluctuant), normal capillary refill - Back Exam Back exam: Present: normal inspection, full ROM. Absent: CVA tenderness (R), CVA tenderness (L) - Neurological Exam Neurological exam: Present: alert, oriented X3, CN II-XII intact, normal gait - Psychiatric Psychiatric exam: Present: normal affect, normal mood - Skin Skin exam: Present: warm, dry, intact, normal color, erythema (Abscess as above). Absent: rash ED Course Vital Signs 05/11/22 05/12/22 19:39 00:51 Temperature 98.8 F Pulse Rate 95 H 78 Respiratory 18 14 Rate Blood Pressure 131/90 Blood Pressure 112/50 [Left] O2 Sat by Pulse 96 97 Oximetry - I & D Left Upper Arm Type of Procedure: Simple Site: Left upper arm 1 x 3 cm abscess Blade Size: 11 I & D Procedure: betadine prep, sterile drapes applied, sterile dressing applied Progress: Left upper arm axillary abscess 1 x 3 cm erythema fluctuance site cleaned with Betadine solution. Anesthesia with 1% lidocaine x3 cc. Anesthesia was achieved. Incision with 11 blade scalpel. Loculations were broken up with six- inch blunt forceps. Moderate purulent drainage. Wound irrigated with 30 cc sterile saline, sterile dressing applied all bleeders controlled patient tolerated procedure with minimal distress. Patient given wound care instructions patient verbalized agreement and understanding with same. ED Medical Decision Making - Medical Decision Making Patient for I&D of left axillary abscess. See procedure note, patient tolerated procedure with minimal distress. Patient given wound care instructions, including antibiotics and pain medicine. Offered soaking daily. Follow-up with general surgery in 2 to 3 days. Return to emergency department should symptoms worsen. Patient DC'd to home in stable condition at this time. Critical care attestation.: If time is entered above; I have spent that time in minutes in the direct care of this critically ill patient, excluding procedure time. ED Disposition Clinical Impression: Abscess of axilla, left Disposition: 01 HOME / SELF CARE / HOMELESS Is pt being admited?: No Does the pt Need Aspirin: No Condition: Stable Instructions: Incision and Drainage, Skin Abscess, [id number] Additional Instructions: Take medications as prescribed, follow-up with your doctor in 2 to 3 days. Return to emergency department should symptoms worsen. Prescriptions: cephALEXin [Keflex] 500 mg PO Q8HR 7 Days #21 cap Acetaminophen/Codeine [Tylenol /Codeine # 3 tab] 1 tab PO Q6H PRN #12 tab PRN Reason: pain Referrals: JABIER WELLS DO [Staff Physician] - 3-5 Days Forms: Work/School Release Form(ED) Time of Disposition: 02:17
== END 2022-05-12 02:30 | disposition home or self-care (01) ==
LOC: ED 18:06
DX: L02.412 Cutaneous abscess of left axilla (principal); Z88.5 Allergy status to narcotic agent; Z91.018 Allergy to other foods; F17.200 Nicotine dependence, unspecified, uncomplicated
CPT/HCPCS: 99282